=== PATIENT | female | born 1950 | race Caucasian/White ===

== ENCOUNTER → 2018-07-15 10:55 | Outpatient (CLI) | payer MEDICARE, OTHER, SELFPAY ==
--- NOTE | 2018-07-15 | DI.MG.S_ITS ---
BILATERAL DIGITAL SCREENING MAMMOGRAM 3D/2D WITH CAD: 07/15/2018 CLINICAL: Routine screening. Comparison is made to exams dated: 04/27/2017 mammogram, 03/02/2016 mammogram, and 02/14/2015 mammogram - [facility]. The tissue of both breasts is heterogeneously dense. This may lower the sensitivity of mammography. Current study was also evaluated with a Computer Aided Detection (CAD) system. There is architectural distortion in the right breast at 11 o'clock middle depth. There are a grouped calcifications in the left breast middle depth superior region seen on the mediolateral oblique view only. No other significant masses or calcifications are seen in either breast. IMPRESSION: INCOMPLETE: NEEDS ADDITIONAL IMAGING EVALUATION The architectural distortion in the right breast at 11 o'clock middle depth is indeterminate. Additional views with possible ultrasound are recommended. The grouped calcifications in the left breast middle depth superior region seen on the mediolateral oblique view only are indeterminate. Spot magnification views are recommended. This exam was interpreted at Station ID: [id number]. NOTE: For mammograms, a report in lay terms will be sent to the patient. Approximately 15% of breast malignancies will not be visualized mammographically. In the management of a palpable breast mass, a negative mammogram must not discourage biopsy of a clinically suspicious lesion. Electronically Signed By: Avril olsen/siri:07/15/2018 11:45:56 letter sent: Additional Imaging Needed ACR BI-RADS Category 0: Incomplete 3340F
== END ==
PROVIDERS: PCP Family Medicine; Visit Provider Family Medicine
DX: Z12.31 Encounter for screening mammogram for malignant neoplasm of breast (principal)
CPT/HCPCS: 77063; 77067

== ENCOUNTER → 2018-07-29 08:37 | Outpatient (CLI) | payer MEDICARE, OTHER, SELFPAY ==
[2018-07-29 09:31] LABS: Add Manual Diff / Slide Review NO; Basophils Percent Auto 0.8 % (0-2); Eosinophils Percent Auto 1.8 % (2-4); Hematocrit 44.7 % (36-46); Lymphocytes Percent Auto 24.8 % (25-40); Mean Corpuscular HGB Conc 33.7 % (30-36); Mean Corpuscular Hemoglobin 30.2 PG (26-34); Mean Corpuscular Volume 89.7 fL (80-100); Monocytes Percent Auto 6.4 % (3-14); Neutrophils Absolute Auto 4500 /uL (3000-5900); Neutrophils Percent Auto 66.2 % (50-75); Platelet Count 341 X10^3/uL (150-400); Red Blood Cell Count 4.98 X10^6/uL (4.0-5.2); White Blood Cell Count 6.9 X10^3/uL (4.5-11.0)
[2018-07-29 10:09] LABS: Alanine Aminotransferase 33 IU/L (9-52); Albumin 4.8 g/dL (3.5-5.0); Albumin Globulin Ratio 1.7 (1.0-2.8); Alkaline Phosphatase 58 U/L (38-126); Aspartate Aminotransferase 29 IU/L (14-36); Bilirubin Total 0.6 mg/dL (0.2-1.3); Blood Urea Nitrogen 14 mg/dL (7-17); Carbon Dioxide 30 mmol/L (22-32); Chloride 97 mmol/L (98-107); Cholesterol 193 mg/dL (140-199); Estimated Glomerular Filt Rate > 60.0 mL/min (>60); Globulin 2.8 g/dL (1.7-4.1); Glucose 94 mg/dL (80-110); HDL Cholesterol 80 mg/dL (40-60); HEMOLYSIS < 15 (0-50); LDL Cholesterol Calculated 101 mg/dL (<100); Sodium 136 mmol/L (137-145); Total Protein 7.6 g/dL (6.3-8.2); Triglycerides 60 mg/dL (35-150)
[2018-07-29 10:38] LABS: Thyroid Stimulating Hormone 1.11 uIU/mL (0.47-4.68)
== END ==
PROVIDERS: PCP Family Medicine; Visit Provider Family Medicine
DX: E78.2 Mixed hyperlipidemia (principal); I10 Essential (primary) hypertension
CPT/HCPCS: 36415; 80053; 80061; 84443; 85025

== ENCOUNTER → 2018-08-08 07:59 | Outpatient (CLI) | payer MEDICARE, OTHER, SELFPAY ==
--- NOTE | 2018-08-08 08:01 | DI.MG.S_ITS ---
BILATERAL DIGITAL DIAGNOSTIC MAMMOGRAM 3D/2D WITH ADDITIONAL VIEWS: 08/08/2018 CLINICAL: Additional evaluation requested from prior study. Comparison is made to exams dated: 07/15/2018 mammogram, 04/27/2017 mammogram, and 03/02/2016 mammogram - [facility]. The tissue of both breasts is heterogeneously dense. This may lower the sensitivity of mammography. The architectural distortion in the right breast at 11 o'clock middle depth is less prominent than on the screening mammogram. There are grouped calcifications in the left breast middle depth superior region seen on the mediolateral oblique view only. These are unchanged from prior ammograms. No other significant masses or calcifications are seen in either breast. IMPRESSION: INCOMPLETE: NEEDS ADDITIONAL IMAGING EVALUATION The architectural distortion in the right breast at 11 o'clock middle depth is indeterminate. A targeted ultrasound of the right breast is recommended and will be performed immediately following this exam. This exam was interpreted at Station ID: [id number]. NOTE: For mammograms, a report in lay terms will be sent to the patient. Approximately 15% of breast malignancies will not be visualized mammographically. In the management of a palpable breast mass, a negative mammogram must not discourage biopsy of a clinically suspicious lesion. Electronically Signed By: Avril olsen/:08/08/2018 09:06:07 letter sent: Additional Imaging Needed ACR BI-RADS Category 0: Incomplete 3340F
--- NOTE | 2018-08-08 08:01 | DI.US.S_ITS ---
ULTRASOUND OF RIGHT BREAST: 08/08/2018 CLINICAL: Patient returns for additional imaging over a suspected mass in the right breast. Comparison is made to exams dated: 08/08/2018 mammogram, 07/15/2018 mammogram, and 04/27/2017 mammogram - [facility]. Color flow and real-time ultrasound of the right breast were performed on the areas of interest. Carrero scale images of the real-time examination were reviewed. There is an irregular mass in the right breast at 10 o'clock posterior depth. This irregular mass is hypoechoic. This correlates with mammography findings. IMPRESSION: SUSPICIOUS OF MALIGNANCY The irregular mass in the right breast is at an intermediate suspicion for malignancy. An ultrasound guided biopsy is recommended. This exam was interpreted at Station ID: [id number]. SUMMARY: This was discussed with the patient by the radiologist Dr. Trey Nelson at the time of the exam. Electronically Signed By: Avril Stallworth M.D. lk/:08/08/2018 09:43:45 letter sent: Biopsy Required Ultrasound BI-RADS: 4b Suspicious abnormality - intermediate suspicion of malignancy
== END ==
PROVIDERS: PCP Family Medicine; Visit Provider Family Medicine
DX: R92.8 Other abnormal and inconclusive findings on diagnostic imaging of breast (principal); N63.11 Unspecified lump in the right breast, upper outer quadrant
CPT/HCPCS: 76642; 77066; G0279

== ENCOUNTER → 2018-08-25 13:40 | Outpatient (CLI) | payer MEDICARE, OTHER, SELFPAY ==
--- NOTE | 2018-08-25 | DI.US.S_ITS ---
ULTRASOUND GUIDED BIOPSY RIGHT BREAST: 08/25/2018 CLINICAL: Right breast mass. PATIENT CONSENT: Risks (minor bleeding, infection, vasovagal reaction and repeat procedure), benefits and alternatives were explained to the patient and written informed consent was obtained. Correlation is made to exams dated: 08/08/2018 mammogram, 07/15/2018 mammogram, and 04/27/2017 mammogram - [facility]. An ultrasound guided biopsy using real-time ultrasound was attempted for the oval mass located in the right breast at 10 o'clock posterior depth. This was described on the previous ultrasound report. The skin was prepped in the usual manner. The procedure was terminated due to the breast being too hard to penetrate. IMPRESSION: ULTRASOUND GUIDED BIOPSY Ultrasound guided biopsy of the mass in the right breast posterior depth was terminated. This exam was interpreted at Station ID: [id number]. Teresa Salcido M.D. fx/:08/29/2018 09:18:50 Additional referring physicians: MARLENY COLMENARES
== END ==
PROVIDERS: PCP Family Medicine; Visit Provider Family Medicine
DX: N63.12 Unspecified lump in the right breast, upper inner quadrant (principal); Z53.09 Procedure and treatment not carried out because of other contraindication
CPT/HCPCS: 19083; 76642

== ENCOUNTER 2018-09-22 07:29 | Day surgery (SDC) | payer MEDICARE, OTHER, SELFPAY ==
[2018-09-20 11:54] VITALS: BMI 26.2
[2018-09-22] VITALS (9 sets, daily range): BP systolic 122–146; BP diastolic 74–91; PULSE 62–84; RESP 7–16; TEMP 36–36.8; O2SAT 92–98; BMI 26.2
--- NOTE | 2018-09-22 | DI.NM.S_ITS ---
PROCEDURE: NM SENTINEL NODE W IMAGING RADIOPHARMACEUTICAL: 0.5-1.0 mCi Millipore filtered Tc-99m sulfur colloid. INDICATIONS: BREAST CANCER TECHNIQUE: The area around the nipple was prepped and draped in a sterile fashion. Tc-99m sulfur colloid was injected intra-dermally in the outer edge of the areola in the right breast. Images were obtained subsequently. A body contour outline was obtained. FINDINGS: There are 6-7 lymph node(s) in the ipsilateral axilla. A probable intramammary lymph node is noted in the medial aspect of the right breast. IMPRESSION: 6-7 lymph node(s) are identified in the ipsilateral axilla. Administration of radiotracer into the right breast periareolar region for intra-operative sentinel lymph node localization. Dictated by: Teresa Salcido M.D. on 09/22/2018 at 11:12 Approved by: Teresa Salcido M.D. on 09/22/2018 at 11:16
--- NOTE | 2018-09-22 | DI.MG.S_ITS ---
SPECIMEN: 09/22/2018 CLINICAL: Right breast cancer. Correlation is made to exams dated: 09/22/2018 localization - [facility], 08/27/2018 ultrasound biopsy, 08/27/2018 mammogram - [facility], 08/08/2018 mammogram, and 07/15/2018 mammogram - [facility]. The tip of the localizing wire is present. Also visualized within the specimen is the nearby biopsy marker being targeted. IMPRESSION: SPECIMEN The surgical specimen contains the targeted lesion. This exam was interpreted at Station ID: [id number]. Teresa Salcido M.D. fx/penrad:09/23/2018 13:40:49 Entry: - 09/23/2018 13:40:49
--- NOTE | 2018-09-22 07:32 | DI.MG.S_ITS ---
WIRE LOCALIZATION RIGHT BREAST WITH POST MAMMOGRAPHIC IMAGING- POST-NEEDLE BIOPSY: 09/22/2018 CLINICAL: Right breast cancer. Correlation is made to exams dated: 08/27/2018 ultrasound biopsy, 08/27/2018 mammogram - [facility], and 08/08/2018 mammogram - [facility]. A wire localization was performed for the lobulated mass located in the right breast at 10 o'clock middle depth. The skin was prepped in the usual manner. Local anesthetic was administered to the access site. The localization was approached from the lateral aspect. A wire was inserted into the targeted area. Post placement mammographic imaging was obtained. IMPRESSION: WIRE LOCALIZATION Wire localization for the mass in the right breast at 10 o'clock middle depth was successful. Waiting for pathology results. A final report will be issued when these become available. This exam was interpreted at Station ID: [id number]. Teresa Salcido M.D. fx/:09/22/2018 11:24:31
[2018-09-22] MEDS: LACTATED RINGERS 1,000 ML 42 ML IV ×2 (10:00→13:05)
--- NOTE | 2018-09-22 10:09 | SUR.PREOP ---
pt off to radiology at 0810, returned to opd at 0930, no co's , friend at side
--- NOTE | 2018-09-22 12:21 | PM.PREOP ---
Pre-operative Note Interval Note Pre-op Check: Yes History & Physical Reviewed by Physician and Yes Exam Performed Changes: No
[2018-09-22] MEDS: CEFAZOLIN 2 GM/100 ML FROZ.PIGGY IV (12:36)
--- NOTE | 2018-09-22 12:56 | SUR.OPER ---
Supine on padded OR bed, head on pillow, arms secured on padded arm boards at <90 degrees abduction, legs uncrossed, safety belt at thigh, tape over blanket over lower legs.
[2018-09-22] MEDS: BUPIVACAINE 0.5% (PF) VIAL 30 ML INJ (13:18)
[2018-09-22] MEDS: ONDANSETRON 4 MG/2 ML INJ IV (15:06)
[2018-09-22] MEDS: fentaNYL 100 MCG/2 ML INJ 50 MCG IV (15:07)
--- NOTE | 2018-09-22 15:26 | P.OP_ITS ---
Operative Date/Time/Diagnoses Date of procedure: 09/22/18 Time of procedure: 14:45 Pre-op diagnosis: Right-sided breast cancer Post-op diagnosis: same Procedure & Clinicians Procedure: Needle localization and lumpectomy with sentinel node biopsies Same procedure as scheduled: Yes Indications: Breast cancer Surgeon: Roman Lentz Click Yes if Unassisted: Yes Anesthesia Type: General Operative Notes Findings: Multiple hot nodes. At least for in the specimen. Fairly large specimen in the breast. Closure Type: primary Specimen(s): other (Breast tissue and sentinel nodes) Implants & Drains: None Estimated Blood Loss (mL): 50 Blood products transfused: none Procedure in detail: The patient was placed supine on the operating table and underwent general LMA anesthesia. She had had a needle placed in her breast to localize the lesion prior to coming the operating room. The patient also had an injection of radionucleotide to identify the sentinel nodes. She was prepped and draped in the usual fashion. Local anesthetic it was not infiltrated and a curvilinear incision was made through the needle insertion site. Tissue was excised around the needle in soft palpable tissue. The specimen was removed and sent for radiologic examination. It appeared that the lesion was within the specimen. On palpation of the simmons I found some small nodules in the inferior wall and took an additional piece of inferior margin. Only the inferior margin was removed. Hemostasis was achieved. The wound was irrigated. Clips were placed in the cavity. [place] [id number] mobilizing some of the soft tissues. I used the 3 0 Vicryl to close the space and to close the subcu fat. I used a 4 0 Vicryl subcuticular stitch to close the wound. Attention was then turned to the axilla. Local anesthetic was infiltrated and incision made transversely across the axilla below the hair- bearing area. It was carried into the axilla proper. Using the Navigator probe we identified an area of multiple nodes encased in a large amount of fat. I noted that there were multiple hot nodes in the region and chose to remove the fatty mass that is contained them. This was done principally with cautery I ligated 1 vessel. 10 sec counts of 4 nodes identified within the specimens were 7562, 7562, 5269 and 4339. No other significantly positive nodes were identified in the axilla. Once these removed meticulous hemostasis was achieved. The axilla was closed by closing the fascia with 3 0 Vicryl. The subcu was closed with 3 0 Vicryl. Skin was closed running 4 0 Vicryl subcuticular stitch. Steri-Strips were applied to both wounds. Dressings were applied the patient was awakened and taken to recovery area in good condition. Complications: none Condition: stable Disposition: PACU Plan for aftercare: Follow-up in the office next week
--- NOTE | 2018-09-22 15:36 | SUR.PHASEII ---
PT ARRIVED TO PHASE II VIA STRETCHER. PT SITTING UP AND SIPPING WATER. PT FRIEND BROUGHT TO BEDSIDE. IV SITE CLEAR. SURGICAL SITE DRSG OBSERVED TO BE C/D/I. PT STATES PAIN IS TOLERABLE AT THIS TIME. PT DENIES ANY NAUSEA. PT FRIEND WENT TO GET RX FILLED. BED IN LOWEST POSITION AND CALL LIGHT GIVEN TO PT. PT APPEARS COMFORTABLE AT THIS TIME.
== END 2018-09-22 16:41 | disposition home or self-care (01) ==
PROVIDERS: Family Provider Family Medicine; PCP Family Medicine; Visit Provider Specialist
PROC: (CPT 19301; principal; 2018-09-22 11:30)
DX: C50.911 Malignant neoplasm of unspecified site of right female breast (principal)
CPT/HCPCS: 38525; 19301; 19281; 76098; 78195; 88307; 88341; 88342; A9541; J0690; J1100; J1885; J2250; J2405; J2704; J3010

== ENCOUNTER → 2018-10-19 09:59 | Outpatient (CLI) | payer MEDICARE, OTHER, SELFPAY | PROVIDERS: Family Provider Family Medicine; PCP Family Medicine | DX: M85.852 Other specified disorders of bone density and structure, left thigh (principal); Z78.0 Asymptomatic menopausal state; C50.919 Malignant neoplasm of unspecified site of unspecified female breast; Z90.722 Acquired absence of ovaries, bilateral; Z82.62 Family history of osteoporosis | CPT/HCPCS: 77080 ==

== ENCOUNTER → 2019-05-16 12:33 | Outpatient (CLI) | payer MEDICARE, OTHER, SELFPAY ==
--- NOTE | 2019-05-16 | DI.MG.S_ITS ---
BILATERAL DIGITAL DIAGNOSTIC MAMMOGRAM 3D/2D SHORT-TERM FOLLOW-UP POST LUMPECTOMY: 05/16/2019 CLINICAL: Short term follow up of the right breast, due for bilateral imaging. Comparison is made to exams dated: 09/22/2018 [facility], [facility], and 08/08/2018 [facility]. The tissue of both breasts is heterogeneously dense. This may lower the sensitivity of mammography. There are new surgical clips in the right breast at 11 o'clock middle depth. This correlates with surgery. There is architectural distortion, a post-surgical scar, skin retraction, thickening, and trabecular thickening associated with the surgical clips. No other significant masses, calcifications, or other findings are seen in either breast. IMPRESSION: There is no mammographic evidence of malignancy. A 1 year screening mammogram is recommended. This exam was interpreted at Station ID: [id number]. NOTE: For mammograms, a report in lay terms will be sent to the patient. Approximately 15% of breast malignancies will not be visualized mammographically. In the management of a palpable breast mass, a negative mammogram must not discourage biopsy of a clinically suspicious lesion. Electronically Signed By: Antony joseph/siri:05/16/2019 13:29:56 copy to: MARLENY COLMENARES copy to: SOTO GONZALEZ letter sent: Normal Exam ACR BI-RADS Category 2: Benign Finding(s) 3342F
== END ==
PROVIDERS: Family Provider Family Medicine; PCP Family Medicine; Visit Provider Radiology Radiation Oncology
DX: R92.8 Other abnormal and inconclusive findings on diagnostic imaging of breast (principal)
CPT/HCPCS: 77066; G0279

== ENCOUNTER → 2019-08-16 08:40 | Outpatient (CLI) | payer MEDICARE, OTHER, SELFPAY ==
[2019-08-16 09:41] LABS: Add Manual Diff / Slide Review NO; Basophils Absolute Auto 100 /uL (0-100); Basophils Percent Auto 0.8 % (0-2); Eosinophils Absolute Auto 100 /uL (0-450); Eosinophils Percent Auto 1.3 % (2-4); Hematocrit 43.8 % (36-46); Lymphocytes Absolute Auto 1600 /uL (1100-4500); Lymphocytes Percent Auto 18.8 % (25-40); Mean Corpuscular HGB Conc 34.2 % (30-36); Mean Corpuscular Hemoglobin 30.6 PG (26-34); Mean Corpuscular Volume 89.4 fL (80-100); Monocytes Absolute Auto 500 /uL (0-900); Monocytes Percent Auto 5.7 % (3-14); Neutrophils Absolute Auto 6100 /uL (1500-7000); Neutrophils Percent Auto 73.4 % (50-75); Platelet Count 306 X10^3/uL (150-400); White Blood Cell Count 8.3 X10^3/uL (4.5-11.0)
[2019-08-16 09:52] LABS: Alanine Aminotransferase 29 IU/L (9-52); Albumin 4.8 g/dL (3.5-5.0); Albumin Globulin Ratio 1.7 (1.0-2.8); Alkaline Phosphatase 76 U/L (38-126); Aspartate Aminotransferase 33 IU/L (14-36); BUN Creatinine Ratio 17.1 (6-22); Bilirubin Total 0.7 mg/dL (0.2-1.3); Blood Urea Nitrogen 12 mg/dL (7-17); Calcium 10.3 mg/dL (8.4-10.2); Carbon Dioxide 31 mmol/L (22-32); Chloride 97 mmol/L (98-107); Cholesterol 228 mg/dL (140-199); Estimated Glomerular Filt Rate > 60.0 mL/min (>60); Globulin 2.8 g/dL (1.7-4.1); Glucose 101 mg/dL (80-110); HDL Cholesterol 77 mg/dL (40-60); HEMOLYSIS < 15 (0-50); LDL Cholesterol Calculated 127 mg/dL (<100); Sodium 136 mmol/L (137-145); Total Protein 7.6 g/dL (6.3-8.2); Triglycerides 119 mg/dL (35-150)
== END ==
PROVIDERS: PCP Family Medicine; Visit Provider Family Medicine
DX: Z00.00 Encounter for general adult medical examination without abnormal findings (principal); E78.2 Mixed hyperlipidemia; I10 Essential (primary) hypertension
CPT/HCPCS: 36415; 80053; 80061; 85025

== ENCOUNTER → 2020-03-26 09:05 | Outpatient (CLI) | payer MEDICARE, OTHER, SELFPAY ==
[2020-03-26 09:25] LABS: Add Manual Diff / Slide Review NO; Basophils Absolute Auto 100 /uL (0-100); Basophils Percent Auto 1.4 % (0-2); Eosinophils Absolute Auto 100 /uL (0-450); Eosinophils Percent Auto 1.9 % (2-4); Hematocrit 44.3 % (36-46); Hemoglobin 15.1 g/dL (12.0-16.0); Lymphocytes Absolute Auto 1400 /uL (1100-4500); Lymphocytes Percent Auto 29.8 % (25-40); Mean Corpuscular HGB Conc 34.1 % (30-36); Mean Corpuscular Hemoglobin 30.7 PG (26-34); Mean Corpuscular Volume 90.2 fL (80-100); Monocytes Absolute Auto 400 /uL (0-900); Monocytes Percent Auto 7.3 % (3-14); Neutrophils Absolute Auto 2900 /uL (1500-7000); Neutrophils Percent Auto 59.6 % (50-75); Platelet Count 288 X10^3/uL (150-400); Red Blood Cell Count 4.92 X10^6/uL (4.0-5.2); Red Cell Distribution Width 13.9 % (11.6-14.8); White Blood Cell Count 4.8 X10^3/uL (4.5-11.0)
[2020-03-26 09:37] LABS: Alanine Aminotransferase 24 IU/L (<35); Albumin 4.9 g/dL (3.5-5.0); Albumin Globulin Ratio 1.5 (1.0-2.8); Alkaline Phosphatase 71 U/L (38-126); Aspartate Aminotransferase 31 IU/L (14-36); BUN Creatinine Ratio 18.3 (6-22); Bilirubin Total 0.9 mg/dL (0.2-1.3); Blood Urea Nitrogen 13 mg/dL (7-17); Calcium 10.7 mg/dL (8.4-10.2); Carbon Dioxide 27 mmol/L (22-32); Chloride 98 mmol/L (98-107); Cholesterol 201 mg/dL (140-199); Estimated Glomerular Filt Rate > 60.0 mL/min (>60); Globulin 3.2 g/dL (1.7-4.1); Glucose 106 mg/dL (80-110); HDL Cholesterol 71 mg/dL (40-60); HEMOLYSIS 16 (0-50); LDL Cholesterol Calculated 118 mg/dL (<100); Potassium 4.3 mmol/L (3.4-5.1); Sodium 134 mmol/L (137-145); Total Protein 8.1 g/dL (6.3-8.2); Triglycerides 62 mg/dL (35-150)
[2020-03-26 10:00] LABS: Vitamin D 25 Hydroxy (D3) 36.6 ng/mL (30.0-100.0)
== END ==
PROVIDERS: PCP Family Medicine; Referring Provider Internal Medicine Hematology & Oncology; Visit Provider Internal Medicine Hematology & Oncology
DX: C50.919 Malignant neoplasm of unspecified site of unspecified female breast (principal)
CPT/HCPCS: 80053; 80061; 82306; 85025

== ENCOUNTER → 2020-05-21 09:07 | Outpatient (CLI) | payer MEDICARE, OTHER, SELFPAY ==
--- NOTE | 2020-05-21 09:11 | DI.MG.S_ITS ---
BILATERAL DIGITAL SCREENING MAMMOGRAM 3D/2D WITH CAD POST LUMPECTOMY: 05/21/2020 CLINICAL: Routine screening. Personal history of right breast cancer. Comparison is made to exams dated: 05/16/2019 mammogram, 07/15/2018 mammogram, 04/27/2017 mammogram, 03/02/2016 mammogram, and 09/02/2015 mammogram - [facility]. The tissue of both breasts is heterogeneously dense. This may lower the sensitivity of mammography. Current study was also evaluated with a Computer Aided Detection (CAD) system. There are benign calcifications in both breasts. There also are benign post operative findings in the right breast. No significant masses, calcifications, or other findings are seen in either breast. There has been no significant interval change. IMPRESSION: BENIGN There is no mammographic evidence of malignancy. A 1 year screening mammogram is recommended. This exam was interpreted at Station ID: [id number]. NOTE: For mammograms, a report in lay terms will be sent to the patient. Approximately 15% of breast malignancies will not be visualized mammographically. In the management of a palpable breast mass, a negative mammogram must not discourage biopsy of a clinically suspicious lesion. Electronically Signed By: Tom tam/siri:05/21/2020 11:41:07 copy to: MARLENY COLMENARES copy to: HERNESTO VILCHIS letter sent: Normal Exam ACR BI-RADS Category 2: Benign Finding(s) 3342F
--- NOTE | 2020-05-21 09:11 | DI.RAD.S_ITS ---
PROCEDURE: XR HIP W PEL IF DONE LT 2V INDICATIONS: Left hip pain TECHNIQUE: AP pelvis with lateral view(s) of the left hip(s). COMPARISON: None. FINDINGS: Bones: No fractures or dislocations. Pelvic ring appears intact. No suspicious bony lesions. Mild bilateral hip osteoarthritis. Lower lumbar spondylosis Degenerative sclerosis is noted the pubis symphysis. Bilateral sacroiliac degenerative spurring. Soft tissues: The visualized bowel gas pattern is normal. No suspicious soft tissue calcifications. IMPRESSION: Mild bilateral hip joint degeneration If the patient's pain or other symptoms persist, consider further evaluation with MRI Dictated by: Trey Nelson M.D. on 05/21/2020 at 11:23 Approved by: Trey Nelson M.D. on 05/21/2020 at 11:24
--- NOTE | 2020-05-21 09:11 | DI.RAD.S_ITS ---
PROCEDURE: XR LUMBAR SPINE 2-3V INDICATIONS: Left hip pain TECHNIQUE: 3 views of the lumbar spine were acquired. COMPARISON: None. FINDINGS: Bones: No fracture or focal osseous destruction. Multilevel degenerative endplate sclerosis and spurring. Diffuse facet arthropathy. Grade 1 anterolisthesis of L4 on L5. Severe narrowing of the L3-L4 and L5-S1 disc spaces. Soft tissues: Overlying bowel gas pattern is normal. No suspicious soft tissue calcifications. IMPRESSION: Multilevel lumbar spondylosis most pronounced at L3-L4 and L5-S1 Dictated by: Trey Nelson M.D. on 05/21/2020 at 11:24 Approved by: Trey Nelson M.D. on 05/21/2020 at 11:25
[2020-05-21 11:20] LABS: BUN Creatinine Ratio 12.5 (6-22); Blood Urea Nitrogen 8 mg/dL (7-17); Calcium 10.1 mg/dL (8.4-10.2); Carbon Dioxide 27 mmol/L (22-32); Chloride 98 mmol/L (98-107); Estimated Glomerular Filt Rate > 60.0 mL/min (>60); Glucose 93 mg/dL (80-110); HEMOLYSIS < 15 (0-50); Potassium 4.6 mmol/L (3.4-5.1); Sodium 132 mmol/L (137-145)
== END ==
PROVIDERS: PCP Family Medicine; Referring Provider Family Medicine; Visit Provider Internal Medicine Hematology & Oncology
DX: Z12.31 Encounter for screening mammogram for malignant neoplasm of breast (principal); Z85.3 Personal history of malignant neoplasm of breast; M25.552 Pain in left hip; M16.0 Bilateral primary osteoarthritis of hip; M47.816 Spondylosis without myelopathy or radiculopathy, lumbar region; M47.817 Spondylosis without myelopathy or radiculopathy, lumbosacral region; E83.52 Hypercalcemia
CPT/HCPCS: 36415; 72100; 73502; 77063; 77067; 80048

== ENCOUNTER → 2020-09-17 09:10 | Outpatient (CLI) | payer MEDICARE, OTHER, SELFPAY ==
[2020-09-17 10:44] LABS: BUN Creatinine Ratio 16.7 (6-22); Blood Urea Nitrogen 11 mg/dL (7-17); Calcium 10.1 mg/dL (8.4-10.2); Carbon Dioxide 30 mmol/L (22-32); Chloride 100 mmol/L (98-107); Cholesterol 213 mg/dL (140-199); Estimated Glomerular Filt Rate > 60.0 mL/min (>60); Glucose 98 mg/dL (80-110); HDL Cholesterol 80 mg/dL (40-60); HEMOLYSIS 19 (0-50); LDL Cholesterol Calculated 108 mg/dL (<100); Potassium 4.5 mmol/L (3.4-5.1); Sodium 135 mmol/L (137-145); Triglycerides 124 mg/dL (35-150)
== END ==
PROVIDERS: PCP Family Medicine; Referring Provider Family Medicine; Visit Provider Family Medicine
DX: E78.2 Mixed hyperlipidemia (principal); I10 Essential (primary) hypertension
CPT/HCPCS: 36415; 80048; 80061

== ENCOUNTER 2020-09-20 14:56 | Emergency (ER) | payer MEDICARE, OTHER, SELFPAY ==
[2020-09-20] VITALS (10 sets, daily range): BP systolic 130–182; BP diastolic 75–95; PULSE 74–90; RESP 17–29; TEMP 37.1; O2SAT 97–99
--- NOTE | 2020-09-20 15:11 | DI.RAD.S_ITS ---
PROCEDURE: XR CHEST 1V INDICATIONS: chest pain TECHNIQUE: One view of the chest was acquired. COMPARISON: None. FINDINGS: Surgical changes and devices: None. Lungs and pleura: Lungs are clear. No pleural effusions or pneumothorax. Mediastinum: Mediastinal contours appear normal. Heart size is normal. Bones and chest wall: No suspicious bony lesions. Overlying soft tissues appear unremarkable. IMPRESSION: Normal for age, source of current chest pain symptoms is not seen. Dictated by: Sridhar Lutz M.D. on 09/20/2020 at 15:43 Approved by: Sridhar Lutz M.D. on 09/20/2020 at 15:43
--- NOTE | 2020-09-20 15:15 | PC.NURSE ---
Patient bought a pulse oximetry device and used it finding her hear rate in 140's. Patient states during times of fast heart rate some lightheadedness as well as some intermittent left sided chest pulling Denies nausea, SOB. Has had some headaches recently
[2020-09-20 15:18] LABS: INR 1.1 (0.9-1.3); Prothrombin Time 12.1 SECONDS (10.1-12.7)
[2020-09-20 15:21] LABS: Add Manual Diff / Slide Review NO; Basophils Absolute Auto 100 /uL (0-100); Basophils Percent Auto 0.9 % (0-2); Eosinophils Absolute Auto 0 /uL (0-450); Eosinophils Percent Auto 0.5 % (2-4); Hematocrit 44.8 % (36-46); Hemoglobin 15.1 g/dL (12.0-16.0); Lymphocytes Absolute Auto 1700 /uL (1100-4500); Lymphocytes Percent Auto 26.5 % (25-40); Mean Corpuscular HGB Conc 33.8 % (30-36); Mean Corpuscular Hemoglobin 30.5 PG (26-34); Mean Corpuscular Volume 90.4 fL (80-100); Monocytes Absolute Auto 500 /uL (0-900); Monocytes Percent Auto 7.5 % (3-14); Neutrophils Absolute Auto 4200 /uL (1500-7000); Neutrophils Percent Auto 64.6 % (50-75); PTT Partial Thromboplastin Tim 30 SECONDS (26.4-36.2); Platelet Count 283 X10^3/uL (150-400); Red Blood Cell Count 4.95 X10^6/uL (4.0-5.2); Red Cell Distribution Width 14.5 % (11.6-14.8); White Blood Cell Count 6.5 X10^3/uL (4.5-11.0)
[2020-09-20 15:23] LABS: Alanine Aminotransferase 23 IU/L (<35); Albumin 4.8 g/dL (3.5-5.0); Albumin Globulin Ratio 1.6 (1.0-2.8); Alkaline Phosphatase 72 U/L (38-126); Aspartate Aminotransferase 27 IU/L (14-36); BUN Creatinine Ratio 17.9 (6-22); Bilirubin Total 0.7 mg/dL (0.2-1.3); Blood Urea Nitrogen 12 mg/dL (7-17); Carbon Dioxide 29 mmol/L (22-32); Chloride 100 mmol/L (98-107); Creatine Kinase 67 U/L (30-135); Estimated Glomerular Filt Rate > 60.0 mL/min (>60); Glucose 97 mg/dL (80-110); HEMOLYSIS 18 (0-50); Lipase 61 U/L (23-300); Potassium 3.8 mmol/L (3.4-5.1); Sodium 136 mmol/L (137-145); Total Protein 7.8 g/dL (6.3-8.2)
--- NOTE | 2020-09-20 15:30 | ED_ITS ---
HPI - Arrhythmia/Palpitations General Chief Complaint: Arrhythmia/Palpitations Stated Complaint: heart issues high pulse left side pain Time Seen by Provider: 09/20/20 15:08 Source: patient Mode of arrival: Family Vehicle Limitations: no limitations History of Present Illness HPI narrative: 69-year-old woman with a history of right-sided breast cancer post lumpectomy, radiation and currently on letrozole. History of hyperlipidemia and hypertension presents with 48 hours of up pulling sensation in her left chest. She notes that her resting heart rate(she recently purchased a pulse ox monitor) has been in the 110 range and with some simple activity got as high as 140. She notes this is significantly abnormal for herself. She says she has been slightly lightheaded over the last 48 hours but not particularly dizzy. Over the last few months she is concerned that she may have been having some heaviness in her left chest she has been ignoring. She does not describe any recent fevers or cough. She has been more fatigued than usual. When she has this slight pulling in her chest and notes that her heart rate is somewhat elevated she does not feel dyspneic, nauseated nor diaphoretic. She has had no abdominal pain or diarrhea. No urinary frequency or urgency. Related Data Home Medications Medication Instructions Recorded Confirmed calcium carbonate [Tums E-X] 750 mg PO PRN PRN #0 12/28/17 06/05/20 valacyclovir 500 mg PO PRN PRN 02/08/19 06/05/20 Previous Rx's Medication Instructions Recorded atorvastatin 40 mg tablet 40 mg PO HS #90 tab 08/24/19 letrozole [Femara] 2.5 mg PO DAILY #90 tab 02/13/20 ciprofloxacin HCl 500 mg tablet 500 mg PO BID PRN #20 tab 04/17/20 triamcinolone acetonide 0.1 % 1 applictn TOP BID #28.4 gram 04/17/20 topical cream exemestane 25 mg PO DAILY #90 tab 06/05/20 lisinopril 10 mg tablet 10 mg PO QDAY #90 tab 09/04/20 Allergies Allergy/AdvReac Type Severity Reaction Status Date / Time amoxicillin [AMOXICILLIN] AdvReac Mild VOMITING Verified 09/20/20 15:17 codeine [CODEINE] AdvReac Mild GI Verified 09/20/20 15:17 INTOLERANCE erythromycin base AdvReac Mild GI Verified 09/20/20 15:17 [ERYTHROMYCIN BASE] INTOLERANCE Review of Systems Review of Systems Narrative: Remainder of review of systems including constitutional, ENT, cardiovascular, respiratory, GI, , musculoskeletal, skin, neurologic and p sychiatric systems reviewed and are unremarkable except as noted in HPI. Patient History Medical History Breast cancer Cataracts, bilateral (~2009) Chicken pox Diverticular disease (~2014) GERD (gastroesophageal reflux disease) Herpes Hyperlipidemia Hypertension (~2014) Measles (~1979) Migraines Mumps Ovarian cyst (~2006) Ruptured tympanic membrane (~2008) Vision disorder Whooping cough (~1955) Surgical History Anesthesia S/P total abdominal hysterectomy and bilateral salpingo-oophorectomy (~2006) Status post biopsy (~1994) Status post cataract extraction of both eyes with insertion of intraocular lens (~2017) Family History Father Hypertension Grandfather Heart disease Grandfather Heart disease Brother No problems noted. Brother No problems noted. Family/Other Stomach cancer Grandmother No problems noted. Mother No problems noted. Social History household members: none occupational status: previously employed Smoking Status: Never smoker alcohol intake: current Smoking Status: Never smoker alcohol intake frequency: 0-2 drinks per day Alcohol type: wine Substance Use Type: does not use Exam Narrative Exam Narrative: General: Healthy appearing, in no acute distress. Able to give a complete and coherent history. Well-nourished well-developed HEENT: Moist mucous membranes, normal sclera with reactive pupils, Neck: No JVD, supple Respiratory: Lungs are clear to auscultation, no wheezing no rales no rhonchi. Full and symmetrical air movement Chest: No tenderness to palpation along the sternal borders or with anterior compression of the chest. Cardiac: Regular rate and rhythm no murmurs no bruits Abdomen: Soft nontender good bowel tones, no flank pain Skin: Warm and dry, no rashes Neurologic: Grossly neurologically intact with no obvious asymmetries or abnormalities Extremities: No trauma, well perfused Psych: Cooperative, appropriate insight and affect Initial Vital Signs Initial Vital Signs: Vital Signs Temperature 98.7 F 09/20/20 15:11 Pulse Rate 87 09/20/20 15:11 Respiratory Rate 19 09/20/20 15:11 Blood Pressure 182/92 H 09/20/20 15:11 Pulse Oximetry 99 09/20/20 15:11 Course Orders Ordered: ED Orders 09/20/20 15:05 Complete Blood Count AUTO DIFF Stat Comprehensive Metabolic Panel Stat D Dimer Stat Lipase Stat Partial Thromboplastin Time Stat Prothrombin Time INR Stat Troponin & CK Cardiac Panel Stat 09/20/20 15:11 XR chest 1V Stat EKG-12 Lead Stat Vital Signs Vital signs: Vital Signs - 8 hr 09/20/20 15:11 09/20/20 15:20 09/20/20 15:30 Temperature 98.7 F Pulse Rate 87 81 83 Respiratory Rate 19 20 Blood Pressure 182/92 H Pulse Oximetry 99 98 97 09/20/20 16:00 09/20/20 16:30 09/20/20 17:00 Temperature Pulse Rate 80 74 75 Respiratory Rate 19 17 19 Blood Pressure Pulse Oximetry 97 98 98 09/20/20 17:30 Temperature Pulse Rate 83 Respiratory Rate 28 H Blood Pressure 130/75 Pulse Oximetry 98 MDM - Arrhythmia/Palpitations Medical Records Attestation: I reviewed the patient's medical records. Lab Data Attestation: I reviewed the patient's lab results. Result diagrams: 09/20/20 15:05 09/20/20 15:05 Labs: Lab Results 09/20/20 09/20/20 09/20/20 Range/Units 15:05 15:05 15:05 WBC 6.5 (4.5-11.0) X10^3/uL RBC 4.95 (4.0-5.2) X10^6/uL Hgb 15.1 (12.0-16.0) g/dL Hct 44.8 (36-46) % MCV 90.4 (80-100) fL MCH 30.5 (26-34) PG MCHC 33.8 (30-36) % RDW 14.5 (11.6-14.8) % Plt Count 283 (150-400) X10^3/uL Neut % (Auto) 64.6 (50-75) % Lymph % (Auto) 26.5 (25-40) % [place] % (Auto) 7.5 (3-14) % Eos % (Auto) 0.5 L (2-4) % Baso % (Auto) 0.9 (0-2) % Neut # (Auto) 4200 (2506-9753) /uL Lymph # (Auto) 1700 (6717-1350) /uL [place] # (Auto) 500 (0-900) /uL Eos # (Auto) 0 (0-450) /uL Baso # (Auto) 100 (0-100) /uL PT 12.1 (10.1-12.7) SECONDS INR 1.1 (0.9-1.3) APTT 30 (26.4-36.2) SECONDS D-Dimer (<230) ng/mL Sodium 136 L (137-145) mmol/L Potassium 3.8 (3.4-5.1) mmol/L Chloride 100 (98-107) mmol/L Carbon Dioxide 29 (22-32) mmol/L BUN 12 (7-17) mg/dL Creatinine 0.67 (0.52-1.04) mg/dL Estimated GFR > 60.0 (>60) mL/min BUN/Creatinine Ratio 17.9 (6-22) Glucose 97 (80-110) mg/dL Calcium 10.0 (8.4-10.2) mg/dL Total Bilirubin 0.7 (0.2-1.3) mg/dL AST 27 (14-36) IU/L ALT 23 (<35) IU/L Alkaline Phosphatase 72 (38-126) U/L Total Creatine Kinase 67 (30-135) U/L CK-MB (CK-2) TNP CK-MB (CK-2) Rel Index TNP Troponin I < 0.012 (0.01-0.034) ng/mL Total Protein 7.8 (6.3-8.2) g/dL Albumin 4.8 (3.5-5.0) g/dL Globulin 3.0 (1.7-4.1) g/dL Albumin/Globulin Ratio 1.6 (1.0-2.8) Lipase 61 (23-300) U/L 09/20/20 Range/Units 15:05 WBC (4.5-11.0) X10^3/uL RBC (4.0-5.2) X10^6/uL Hgb (12.0-16.0) g/dL Hct (36-46) % MCV (80-100) fL MCH (26-34) PG MCHC (30-36) % RDW (11.6-14.8) % Plt Count (150-400) X10^3/uL Neut % (Auto) (50-75) % Lymph % (Auto) (25-40) % [place] % (Auto) (3-14) % Eos % (Auto) (2-4) % Baso % (Auto) (0-2) % Neut # (Auto) (5675-1374) /uL Lymph # (Auto) (9644-2356) /uL [place] # (Auto) (0-900) /uL Eos # (Auto) (0-450) /uL Baso # (Auto) (0-100) /uL PT (10.1-12.7) SECONDS INR (0.9-1.3) APTT (26.4-36.2) SECONDS D-Dimer 201 (<230) ng/mL Sodium (137-145) mmol/L Potassium (3.4-5.1) mmol/L Chloride (98-107) mmol/L Carbon Dioxide (22-32) mmol/L BUN (7-17) mg/dL Creatinine (0.52-1.04) mg/dL Estimated GFR (>60) mL/min BUN/Creatinine Ratio (6-22) Glucose (80-110) mg/dL Calcium (8.4-10.2) mg/dL Total Bilirubin (0.2-1.3) mg/dL AST (14-36) IU/L ALT (<35) IU/L Alkaline Phosphatase (38-126) U/L Total Creatine Kinase (30-135) U/L CK-MB (CK-2) CK-MB (CK-2) Rel Index Troponin I (0.01-0.034) ng/mL Total Protein (6.3-8.2) g/dL Albumin (3.5-5.0) g/dL Globulin (1.7-4.1) g/dL Albumin/Globulin Ratio (1.0-2.8) Lipase (23-300) U/L Imaging Data Chest x-ray: Radiologist's Impresson: FINDINGS: Surgical changes and devices: None. Lungs and pleura: Lungs are clear. No pleural effusions or pneumothorax. Mediastinum: Mediastinal contours appear normal. Heart size is normal. Bones and chest wall: No suspicious bony lesions. Overlying soft tissues appear unremarkable. IMPRESSION: Normal for age, source of current chest pain symptoms is not seen. Dictated by: Sridhar Lutz M.D. on 09/20/2020 at 15:43 ECG Data Attestation: I personally reviewed and interpreted this ECG as follows: Interpretation: Sinus rhythm at a rate of 184 Occasional PVC Normal axis , normal interval no acute ST T wave changes, no acute ischemic changes MDM Narrative Medical decision making narrative: 69-year-old woman with notable increase in resting heart rate. History of breast cancer and mild left-sided chest pressure/discomfort. Workup is unremarkable for life-threatening issues such as pulmonary embolism, severe anemia, infection including pneumonia, no pneumothorax, no cardio myopathy or cardiomegaly. No obvious explanation to explain the elevated baseline heart rate is noted today. We did briefly discuss overall anxiety levels and I reassured her that continuing her usual activities including taking long walks is safe and may well help in the long run with all of her symptoms. No life-threatening explanation for the elevated resting heart rate or slight chest pain is appreciated. She is safe for home discharge Discharge Plan Departure Patient Disposition: Home Clinical Impression: Sinus tachycardia, Chest pain, non-cardiac Instructions: DI for Atypical Chest Pain Activity Restrictions/Additional Instructions: Thank you for coming in today I think that a more thorough investigation into your relatively elevated resting heart rate as well as some of the pressure that you had over the left side of your chest is absolutely appropriate. Fortunately, I am able to tell you that I did not find any life-threatening issues today. Specifically I did not find any evidence for pulmonary embolism, severe anemia, infection of any kind or heart attack or heart attack like syndrome. It is safe to continue with your activities of daily living including your usual exercise. Focusing again on some of your meditation practices and techniques to make sure that you are grounded and not responding so immediately to the existential angst that seems to be a part of our [place] these last few months may well be helpful. If you have new or worsening symptoms, please feel free to return to the emerge ncy room for further evaluation. I wish you the best Prescriptions: No Action calcium carbonate [Tums E-X] 750 MG tablet,chewable 750 mg PO PRN PRN (Reason: Acid Reflux) Qty: 0 RF: 0 lisinopril [Zestril] 10 mg tablet 10 mg PO QDAY Qty: 90 RF: 0 ciprofloxacin HCl 500 mg tablet 500 mg PO BID PRN (Reason: Diverticulitis) Qty: 20 RF: 0 triamcinolone acetonide 0.1 % cream 1 applictn TOP BID Qty: 28.4 RF: 5 atorvastatin [Lipitor] 40 mg tablet 40 mg PO HS Qty: 90 RF: 3 valacyclovir 500 MG tablet 500 mg PO PRN PRN (Reason: Outbreak) RF: 0 letrozole [Femara] 2.5 mg Tablet 2.5 mg PO DAILY Qty: 90 RF: 4 exemestane 25 mg Tablet 25 mg PO DAILY Qty: 90 RF: 3 Referrals: Juan Manuel Wallace MD [Primary Care Provider] -
[2020-09-20 15:35] LABS: Troponin I < 0.012 ng/mL (0.01-0.034)
[2020-09-20 15:44] LABS: D Dimer 201 ng/mL (<230)
== END 2020-09-20 18:12 | disposition home or self-care (01) ==
PROVIDERS: Emergency Provider Emergency Medicine; PCP Family Medicine
DX: R00.0 Tachycardia, unspecified (principal); R07.89 Other chest pain; E78.5 Hyperlipidemia, unspecified; I10 Essential (primary) hypertension; C50.919 Malignant neoplasm of unspecified site of unspecified female breast
CPT/HCPCS: 36415; 71045; 80053; 82550; 83690; 84484; 85025; 85379; 85610; 85730; 93005; 99283; 99284

== ENCOUNTER → 2020-10-23 09:45 | Outpatient (CLI) | payer MEDICARE, OTHER, SELFPAY ==
--- NOTE | 2020-10-23 09:46 | DI.NM.S_ITS ---
PROCEDURE: NM BERTIN PERF SPECT REST & STR Rest and exercise myocardial perfusion SPECT with gated imaging and ejection fraction RADIOPHARMACEUTICAL: 26.50 mCi Tc-99m sestamibi IV at rest and 26.5 mCi Tc-99m sestamibi IV at peak exercise. A two day-protocol was performed. INDICATIONS: arrhythmia TECHNIQUE: Radiopharmaceutical was injected at peak stress test, and also at rest. SPECT images were obtained. SPECT myocardial perfusion images were displayed in short axis, horizontal long axis, and vertical long axis views. Gated images were reviewed using [employer] software. COMPARISON: None. CARDIAC STRESS: A standard Don treadmill exercise tolerance test was performed by the patient under the supervision of an attending staff. The patient exercised for 3 minutes and 29 seconds; functional aerobic impairment (MARILYN) is +15% on sedentary scale. Hemodynamic data: There is normal blood pressure and heart rate response to exercise stress. Patient achieved 116% of maximum predicted heart rate at peak exercise. Symptoms: Patient denied chest pain during exercise. EKG: No diagnostic EKG changes of ischemia; frequent PVCs at rest that essentially resolved with exercise and came back in recovery. FINDINGS: Raw data: There is good myocardial labeling by radiotracer. No significant motion artifacts. Mvpe-rt-yorzf ratio is 0.21 (normal is less than 0.38 for sestamibi tracer, and less than 0.50 for thallium tracer). Left ventricle function: Gated images demonstrate normal left ventricle wall thickening. No segmental wall motion abnormality. No transient ischemic dilation; TID is 0.88 (normal less than 1.3). The left ventricle resting end-diastolic volume is 72 mL. Left ventricle stress ejection fraction is 87%; normal values are above 45%. Myocardial perfusion: There is normal distribution of activity in the left and right ventricular myocardium. No fixed or reversible perfusion defects. IMPRESSION: Low risk, normal treadmill nuclear stress test. 1) No perfusion evidence of ischemia or infarction. 2) Normal left ventricular size, wall motion, and systolic function (EF post stress 87%). 3) No ECG evidence of ischemia. Frequent PVCs at rest that essentially resolved with exercise and came back in recovery. 4) No angina during the study. 5) Reduced exercise tolerance (4.6 METs, FAOI +15% on sedentary scale). Target heart rate achieved. Appropriate BP response to exercise. Dictated by: Valorie Krishna MD on 10/24/2020 at 18:02 Approved by: Valorie Krishna MD on 10/24/2020 at 18:06
== END ==
PROVIDERS: PCP Family Medicine; Referring Provider Family Medicine; Visit Provider Family Medicine
DX: Z01.812 Encounter for preprocedural laboratory examination (principal); I49.9 Cardiac arrhythmia, unspecified; R07.89 Other chest pain; Z20.822 Contact with and (suspected) exposure to COVID-19
CPT/HCPCS: 78452; 87635; 93016; 93017; 93018; C9803; A9502

== ENCOUNTER → 2020-10-23 13:38 | Outpatient (CLI) | payer MEDICARE, OTHER, SELFPAY ==
[2020-10-23 15:08] LABS: COVID19 -Nasal RAPID Negative (Negative)
== END ==
PROVIDERS: PCP Family Medicine; Visit Provider Physician Assistant
DX: Z01.812 Encounter for preprocedural laboratory examination (principal); Z20.822 Contact with and (suspected) exposure to COVID-19
CPT/HCPCS: 87635

== ENCOUNTER → 2020-10-24 13:08 | Outpatient (CLI) | payer MEDICARE, OTHER, SELFPAY ==
--- NOTE | 2020-10-24 13:09 | DI.ECHO.S_ITS ---
Version: 1 Study ID: [id number] [place] [address] Name: MARYANNE SHINE Study Date: 10/24/2020, 2: 59 PM : 1950 BP: 133 / 100 mmHg Gender: Female Height: 63 in Age: 69 Years Weight: 149 lb BSA: 1.71 mA? Ordering: MARLENY COLMENARES Referring: MARLENY COLMENARES Clinician: Abby Navarrete Reason For Study: AARHYTHMIA History: Summary Statements Normal sinus rhythm. Normal LV size, wall thickness, wall motion and LV systolic function. EF is 60-65%. Normal chamber sizes. Aortic sclerosis with mild associated aortic regurgitation. Otherwise no significant valvular abnormalities. No prior study available for comparison. Procedure: A two-dimensional transthoracic echocardiogram with color flow and Doppler was performed. The study quality was technically adequate. The patient had an echocardiogram, but there is no comparison study available. The patient was in sinus rhythm with heart rates between 75-85 bpm during the exam. Left Ventricle: Diastolic parameters suggest a relaxation abnormality of the left ventricle, consistent with probable normal filling pressures. The ejection fraction is estimated to be 60-65%. The left ventricle is normal in size and wall thickness. Right Ventricle: The right ventricle is normal in size and function. Atria: There is no Doppler evidence for an interatrial shunt. The left atrial size is normal. Right atrial size is normal. Mitral Valve: There is mild mitral regurgitation. The mitral valve is normal in structure and function. Aortic Valve: There is mild aortic regurgitation. There is no aortic valve stenosis. The aortic valve is moderately calcified. There is mild to moderately reduced leaflet mobility. There is discrete nodular thickening of the non- coronary cusp. Tricuspid Valve: There is trace tricuspid regurgitation. Pulmonary artery pressures cannot be estimated because of the lack of a measurable TR jet velocity but the IVC suggests a CVP of around 19 mmHg. The tricuspid valve is normal in structure and function. Pulmonic Valve: There is no pulmonic valvular regurgitation. The pulmonic valve leaflets are thin and pliable; valve motion is normal. Great Vessels: The ascending aorta is mildly enlarged. The aortic root is normal size. The IVC is of normal diameter and collapses greater than 50% with a sniff. This suggests a low right atrial pressure of 3 mm Hg. Pericardium/ Pleura: There is no pericardial effusion. There is no pleural effusion. 2D and M-Mode Measurements and Calculations LVIDd: 4.1 cm AoV Openin.44 cm LVIDs: 2.8 cm LVOT diam: 2.08 cm IVSd: 0.66 cm Ao root diam: 3.0 cm LVPWd: 0.87 cm asc Aorta Diam: 3.4 cm LV gill. diameter/BSA (cm/m^2): 2.42 Ao Arch Diam (Prox Trans): 2.6 cm LV sys. diameter/BSA (cm/m^2): 1.64 EPSS: 0.84 cm RVD1 (basal): 3.1 cm IVC diam: 1.29 cm TAPSE: 1.84 cm LA A4 area: 14.7 special assemblies supervisor? RA area: 14.5 special assemblies supervisor? LA A2 area: 15.7 special assemblies supervisor? RA long axis: 4.5 cm LA length (vol): 4.9 cm RA vol: 39.8 ml LA vol: 39.6 ml RA : 23.3 ml/mA? LA vol index: 23.2 ml/mA? Doppler Measurements and Calculations Ao V2 max: 182.4 cm/sec LVOT Max Andrew: 93.2 cm/sec Ao V2 mean: 117.6 cm/sec LV V1 max P.5 mmHg Ao V2 VTI: 34.0 cm LV V1 VTI: 18.6 cm Ao max P.3 mmHg Ao mean P.6 mmHg SARAI(I,D): 1.86 special assemblies supervisor? SARAI(V,D): 1.74 special assemblies supervisor? SARAI indexed to BSA (cm^2/m^2): 1.09 sev ratio: 0.55 MV E max andrew: 44.1 cm/sec MV dec time: 0.27 sec MV A max andrew: 92.1 cm/sec MV E/A: 0.48 Med Peak E' Andrew: 4.5 cm/sec Lat Peak E' Andrew: 5.6 cm/sec E/e' average: 8.8 TR max andrew: 201.4 cm/sec PA V2 max: 47.4 cm/sec TR max P.2 mmHg PA mean P.46 mmHg Debbie Ruiz M.D. Electronically signed by: Debbie Ruiz M.D. 10/25/2020, 1: 24 AM
--- NOTE | 2020-10-24 14:31 | PM.TREADMILL ---
Cardiac Stress Test Report Referral & Results Date Patient Seen: 10/24/20 Requesting provider: Juan Manuel Wallace Indication: Tachycardia Rest ECG: Frequent PVCs including couplets Procedure Note: Today following both written and verbal informed consent the patient was exercised according to a standard Don protocol patient went for a total of 3 minutes 29 seconds at stage I achieving a maximum heart rate of 174 maximum systolic blood pressure of 160. This is approximately 4.6 METS. Exercise was terminated at this point because of patient was unable to keep up with treadmill or go any faster. Patient was also given Cardiolite through a previously started Hep-Lock IV by the diagnostic imaging staff approximately 1 minute prior to the cessation of exercise. Patient with frequent PVCs at rest but as heart rate increased these disappeared. These were asymptomatic. Function aerobic impairment rates about 15% on the sedentary scale Oxygen saturation remained normal No ST-T segment changes to suggest ischemia Impression: No ECG evidence of ischemia somewhat limited exercise capacity but more likely due to inability to coordinate with the treadmill Please see perfusion imaging report as well Frequent PVCs, recommend echocardiogram Please note: Actual ECG tracings can be found in the PACS system.
== END ==
PROVIDERS: PCP Family Medicine; Referring Provider Family Medicine; Visit Provider Family Medicine
DX: I08.0 Rheumatic disorders of both mitral and aortic valves (principal); I77.89 Other specified disorders of arteries and arterioles; R00.0 Tachycardia, unspecified
CPT/HCPCS: 93306

== ENCOUNTER → 2021-05-22 10:02 | Outpatient (CLI) | payer MEDICARE, OTHER, SELFPAY | PROVIDERS: PCP Family Medicine; Referring Provider Internal Medicine; Visit Provider Internal Medicine | DX: M85.852 Other specified disorders of bone density and structure, left thigh (principal); Z78.0 Asymptomatic menopausal state; Z85.3 Personal history of malignant neoplasm of breast; Z79.811 Long term (current) use of aromatase inhibitors; Z90.722 Acquired absence of ovaries, bilateral; Z82.62 Family history of osteoporosis | CPT/HCPCS: 77080 ==

== ENCOUNTER → 2021-09-02 10:10 | Outpatient (CLI) | payer MEDICARE, OTHER, SELFPAY ==
[2021-09-02 11:22] LABS: Add Manual Diff / Slide Review NO; Basophils Absolute Auto 100 /uL (0-100); Basophils Percent Auto 1.3 % (0-2); Eosinophils Absolute Auto 100 /uL (0-450); Eosinophils Percent Auto 1.2 % (2-4); Hematocrit 44.1 % (36-46); Hemoglobin 14.9 g/dL (12.0-16.0); Lymphocytes Absolute Auto 1400 /uL (1100-4500); Lymphocytes Percent Auto 31.4 % (25-40); Mean Corpuscular HGB Conc 33.7 % (30-36); Mean Corpuscular Hemoglobin 30.1 PG (26-34); Mean Corpuscular Volume 89.5 fL (80-100); Monocytes Absolute Auto 300 /uL (0-900); Neutrophils Absolute Auto 2600 /uL (1500-7000); Neutrophils Percent Auto 59.1 % (50-75); Platelet Count 299 X10^3/uL (150-400); Red Blood Cell Count 4.93 X10^6/uL (4.0-5.2); White Blood Cell Count 4.4 X10^3/uL (4.5-11.0)
[2021-09-02 11:29] LABS: Alanine Aminotransferase 21 IU/L (<35); Albumin 4.7 g/dL (3.5-5.0); Alkaline Phosphatase 72 U/L (38-126); Aspartate Aminotransferase 28 IU/L (14-36); Bilirubin Total 0.8 mg/dL (0.2-1.3); Blood Urea Nitrogen 12 mg/dL (7-17); Calcium 10.3 mg/dL (8.4-10.2); Carbon Dioxide 26 mmol/L (22-32); Chloride 100 mmol/L (98-107); Cholesterol 198 mg/dL (140-199); Estimated Glomerular Filt Rate > 60.0 mL/min (>60); Globulin 2.4 g/dL (1.7-4.1); Glucose 100 mg/dL (80-110); HDL Cholesterol 82 mg/dL (40-60); HEMOLYSIS < 15 (0-50); LDL Cholesterol Calculated 98 mg/dL (<100); Potassium 4.5 mmol/L (3.4-5.1); Sodium 134 mmol/L (137-145); Total Protein 7.1 g/dL (6.3-8.2); Triglycerides 88 mg/dL (35-150)
== END ==
PROVIDERS: PCP Family Medicine; Referring Provider Family Medicine; Visit Provider Family Medicine
DX: E78.2 Mixed hyperlipidemia (principal); I10 Essential (primary) hypertension; E83.52 Hypercalcemia
CPT/HCPCS: 36415; 80053; 80061; 85025

== ENCOUNTER → 2021-09-12 11:04 | Outpatient (CLI) | payer MEDICARE, OTHER, SELFPAY ==
--- NOTE | 2021-09-12 11:09 | DI.MRI.S_ITS ---
PROCEDURE: MR HIP LT WO CON INDICATIONS: pain still after PT, osteopathic tx, and chiropractic tx TECHNIQUE: Noncontrast coronal T1 spin echo and STIR through the bony pelvis. Coronal and axial T2 fast spin echo with fat saturation, sagittal T1 spin echo, and oblique axial T2 fast spin echo with fat saturation through the hip. COMPARISON: None. FINDINGS: BONES AND JOINTS: Osseous structures: No fracture identified. Sacroiliac joints: Unremarkable in signal intensity. Lower lumbar spine: Diffuse spondylosis and facet arthropathy. Other: No evidence of osteonecrosis. TENDONS AND LIGAMENTS: Gluteus medius and minimus tendons: Severe partial tear/tendinopathy of the gluteus minimus tendon. There is also high-grade signal changes, thickening and strain/partial tear involving the gluteus medius tendon. There is adjacent soft tissue edema and fluid. Atrophy of the respective muscles is also noted, compared to the right side. There is also tendinopathy involving the right hip adductors, although to a much lesser extent, seen on large [id number] pulse sequences. There is age-indeterminate sprain of the origin of the right rectus femoris. Proximal iliotibial band: Intact. Iliopsoas tendon: Intact. Origin of the hamstring tendon: Intact. Rectus femoris muscle origins: Intact Ligamentum teres: Intact where visualized. LABRUM: Labrum: Ill-defined degeneration of the labrum, with amorphous intrasubstance signal change and tear involving the superior segment. Associated 3 mm paralabral cyst seen on image 10/5. Alpha angle of the femur: Within normal limits at less than 55 degrees. SOFT TISSUES: Visualized muscles: Normal bulk and internal signal. Quadratus femoris muscle: Normal. Proximal sciatic neurovascular bundle: Normal adjacent to the hamstring tendons. Other: No pelvic free fluid. Bladder: Normal. Genitourinary structures and bowel loops: Normal where visualized. IMPRESSION: Severe left hip adductor insertional tendinopathy and partial tear as detailed above, with gluteus minimus and medius muscle atrophy. Poorly defined superior labral tear. Adjacent 3 mm paralabral cyst. Dictated by: Trey Nelson M.D. on 09/12/2021 at 13:07 Approved by: Trey Nelson M.D. on 09/12/2021 at 13:15
== END ==
PROVIDERS: PCP Family Medicine; Referring Provider Family Medicine; Visit Provider Family Medicine
DX: S76.012A Strain of muscle, fascia and tendon of left hip, initial encounter (principal); S73.192A Other sprain of left hip, initial encounter; M25.552 Pain in left hip
CPT/HCPCS: 73721

== ENCOUNTER 2021-11-13 10:25 | Inpatient (IN) | payer MEDICARE, OTHER, SELFPAY ==
[2021-11-13] VITALS (13 sets, daily range): BP systolic 103–145; BP diastolic 62–100; PULSE 84–116; RESP 14–18; TEMP 36.9–37.9; O2SAT 94–99; BMI 26.9
[2021-11-13 10:45] LABS: Add Manual Diff / Slide Review NO; Basophils Absolute Auto 100 /uL (0-100); Basophils Percent Auto 0.4 % (0-2); Eosinophils Absolute Auto 0 /uL (0-450); Hematocrit 44.5 % (36-46); Hemoglobin 15.1 g/dL (12.0-16.0); Lymphocytes Absolute Auto 1100 /uL (1100-4500); Lymphocytes Percent Auto 6.4 % (25-40); Mean Corpuscular HGB Conc 33.9 % (30-36); Mean Corpuscular Hemoglobin 30.2 PG (26-34); Mean Corpuscular Volume 89.1 fL (80-100); Monocytes Absolute Auto 600 /uL (0-900); Monocytes Percent Auto 3.4 % (3-14); Neutrophils Absolute Auto 16000 /uL (1500-7000); Neutrophils Percent Auto 89.8 % (50-75); Platelet Count 311 X10^3/uL (150-400); White Blood Cell Count 17.8 X10^3/uL (4.5-11.0)
[2021-11-13 10:53] LABS: INR 1.2 (0.9-1.3); Prothrombin Time 13.8 SECONDS (10.1-12.7)
[2021-11-13 10:55] LABS: PTT Partial Thromboplastin Tim 31 SECONDS (26.4-36.2)
[2021-11-13 10:57] LABS: Alanine Aminotransferase 22 IU/L (<35); Albumin 4.8 g/dL (3.5-5.0); Albumin Globulin Ratio 1.4 (1.0-2.8); Alkaline Phosphatase 80 U/L (38-126); Aspartate Aminotransferase 27 IU/L (14-36); BUN Creatinine Ratio 11.6 (6-22); Bilirubin Total 1.7 mg/dL (0.2-1.3); Blood Urea Nitrogen 10 mg/dL (7-17); Carbon Dioxide 27 mmol/L (22-32); Chloride 95 mmol/L (98-107); Estimated Glomerular Filt Rate > 60.0 mL/min (>60); Globulin 3.4 g/dL (1.7-4.1); Glucose 118 mg/dL (80-110); HEMOLYSIS < 15 (0-50); Lipase 29 U/L (23-300); Sodium 132 mmol/L (137-145); Total Protein 8.2 g/dL (6.3-8.2)
--- NOTE | 2021-11-13 10:58 | ED_ITS ---
HPI - General Adult General Chief complaint: Abdominal Pain Stated complaint: Thinks Diverticulitis Time Seen by Provider: 11/13/21 10:58 Source: patient Mode of arrival: Ambulatory Limitations: no limitations History of Present Illness HPI narrative: 70-year-old female here for evaluation of several days of left-sided abdominal discomfort. She states she has had diverticulitis in the past. States this feels like prior episodes of diverticulitis just worse. Some nausea no vomiting. No blood in stool. No urinary symptoms. Has had a hysterectomy but no other abdominal surgeries. No fevers. Has a prescription for Cipro at home that she was given by her primary doctor in case her diverticulitis came back. She has had a total of 4 doses of this with the most recent being this morning. Related Data Home Medications Medication Instructions Recorded Confirmed calcium carbonate 300 mg (750 mg) 750 mg PO PRN PRN #0 12/28/17 11/13/21 chewable tablet (Tums E-X) Previous Rx's Medication Instructions Recorded letrozole 2.5 mg tablet (Femara) 2.5 mg PO DAILY #90 tab 04/09/21 atorvastatin 40 mg tablet (Lipitor) 40 mg PO HS #90 tab 09/02/21 lisinopril 10 mg tablet (Zestril) 10 mg PO QDAY #90 tab 09/02/21 Allergies Allergy/AdvReac Type Severity Reaction Status Date / Time amoxicillin [AMOXICILLIN] AdvReac Mild VOMITING Verified 11/13/21 10:34 codeine [CODEINE] AdvReac Mild GI Verified 11/13/21 10:34 INTOLERANCE erythromycin base AdvReac Mild GI Verified 11/13/21 10:34 [ERYTHROMYCIN BASE] INTOLERANCE Review of Systems Constitutional Constitutional: Denies fatigue and Denies fever(s) Cardiovascular Cardiovascular: Reports system reviewed and no additional complaints, except as documented Respiratory Respiratory: Reports system reviewed and no additional complaints, except as documented Gastrointestinal Gastrointestinal: Reports abdominal pain, Reports nausea and Denies vomiting Genitourinary Genitourinary: Denies dysuria Musculoskeletal Musculoskeletal: Reports system reviewed and no additional complaints, except as documented Integumentary/Breasts Skin/Breast: Reports system reviewed and no additional complaints, except as documented Neurologic Neurologic: Reports system reviewed and no additional complaints, except as documented Endocrine Endocrine: Denies fatigue Hematologic/Lymphatic On Anticoagulants: No Allergic/Immunologic Allergic/Immunologic: Reports system reviewed and no additional complaints, except as documented Patient History Medical History Breast cancer Bursitis of left hip Cataracts, bilateral (~2009) Cervical somatic dysfunction Chicken pox Colon polyps Diverticular disease (~2014) Essential hypertension Gastric polyps GERD (gastroesophageal reflux disease) Herpes Hyperlipidemia Hypertension (~2014) Iliotibial band syndrome, left leg Measles (~1979) Migraines Mild aortic regurgitation Mumps Ovarian cyst (~2006) Pelvic somatic dysfunction Piriformis syndrome of left side Ruptured tympanic membrane (~2008) Sacral region somatic dysfunction Segmental and somatic dysfunction of abdomen and other regions Brar splint of left lower extremity Somatic dysfunction of lower extremity Verruca warts (infectious) Vision disorder Whooping cough (~1955) Surgical History Anesthesia S/P total abdominal hysterectomy and bilateral salpingo-oophorectomy (~2006) Status post biopsy (~1994) Status post cataract extraction of both eyes with insertion of intraocular lens (~2017) Family History Father Hypertension Grandfather Heart disease Grandfather Heart disease Brother No problems noted. Brother No problems noted. Family/Other Stomach cancer Grandmother No problems noted. Mother No problems noted. Social History household members: none occupational status: previously employed Smoking Status: Never smoker alcohol intake: current Smoking Status: Never smoker alcohol intake frequency: holidays/special occasions only Alcohol type: wine Substance Use Type: does not use Exam Initial Vital Signs Initial Vital Signs: Vital Signs Temperature 98.5 F 11/13/21 10:30 Pulse Rate 116 H 11/13/21 10:30 Respiratory Rate 15 11/13/21 10:30 Blood Pressure 139/100 H 11/13/21 10:30 Pulse Oximetry 97 11/13/21 10:30 Const General: cooperative and No ill appearing HENMT Head: normal to inspection and normocephalic Resp Effort & Inspection: normal respiratory effort Auscultation: clear to auscultation bilaterally Cardio Rate: tachycardic Rhythm: regular rhythm GI Palpation: soft, No firm and tender Skin General: no rashes or lesions noted Neuro General: patient alert, patient awake, patient oriented x3 and moves all extremities Speech: speech normal Extrem General: normal to inspection and capillary refill normal Psych Appearance: grossly normal and well kempt Scores GCS Shreyas coma scale eye opening: Spontaneous [place] coma scale verbal response: Orientated Shreyas coma scale motor response: Obey commands Shreyas coma scale total score: 15 Course Orders Ordered: ED Orders 11/13/21 10:38 Complete Blood Count AUTO DIFF Stat Comprehensive Metabolic Panel Stat Lipase Stat Partial Thromboplastin Time Stat Prothrombin Time INR Stat 11/13/21 11:05 CT abdomen pelvis w con Stat 11/13/21 12:15 COVID19 -Nasal swab/Pre-Proc Stat Acetaminophen (Acetaminophen 325 Mg Tablet) 650 mg PO Q6HR PRN PRN Reason: Fever/Mild Pain (1-3) Enoxaparin Sodium (Enoxaparin 40 Mg/0.4 Ml Syringe) 40 mg SUBCUT DAILY [facility] Piperacillin Sod/Tazobactam (Sod 3.375 gm/ Sodium Chloride) 100 mls @ 25 mls/hr IV Q8H [facility] Last Admin: 11/13/21 15:38 Dose: 25 mls/hr Documented by: CMCFARL Sodium Chloride (Normal Saline 0.9%) 1,000 mls @ 125 mls/hr IV CONT [facility] Last Admin: 11/13/21 15:38 Dose: 125 mls/hr Documented by: CMCFARL Ketorolac Tromethamine (Ketorolac 30 Mg/Ml Vial) 15 mg IV Q6H PRN PRN Reason: Pain, Moderate (4-6) Stop: 11/18/21 15:39 Last Admin: 11/13/21 16:00 Dose: 15 mg Documented by: CMCFARL Letrozole (Letrozole 2.5 Mg Tablet) 2.5 mg PO DAILY [facility] Morphine Sulfate (Morphine 4 Mg/Ml Inj) 4 mg IV Q4HR PRN PRN Reason: Pain, Severe (7-10) Last Admin: 11/13/21 13:10 Dose: 2 mg Documented by: KKNOTT Naloxone HCl (Naloxone 0.4 Mg/Ml Vial) 0.2 mg IV Q2MIN PRN PRN Reason: Opiate Reversal Ondansetron HCl (Ondansetron 4 Mg/2 Ml Inj) 4 mg IV Q8HR PRN PRN Reason: Nausea And Vomiting Oxycodone HCl (Oxycodone Ir 5 Mg Tablet) 5 mg PO Q4HR PRN PRN Reason: Pain, Moderate (4-6) Last Admin: 11/13/21 14:01 Dose: 5 mg Documented by: ALAYNA Discontinued Medications Sodium Chloride (Normal Saline 0.9%) 1,000 mls @ 1,000 mls/hr IV BOLUS ONE Stop: 11/13/21 11:58 Last Infusion: 11/13/21 12:20 Dose: 0 mls/hr Documented by: Admin: 11/13/21 11:31 Dose: 1,000 mls/hr Documented by: TREVOR Piperacillin Sod/Tazobactam (Sod 4.5 gm/ Sodium Chloride) 100 mls @ 200 mls/hr IV NOW ONE Stop: 11/13/21 11:58 Last Infusion: 11/13/21 12:40 Dose: 0 mls/hr Documented by: Admin: 11/13/21 12:10 Dose: 200 mls/hr Documented by: TREVOR Metronidazole (Flagyl) 500 mg in 100 mls @ 100 mls/hr IV NOW ONE Stop: 11/13/21 12:56 Last Infusion: 11/13/21 13:45 Dose: 0 mls/hr Documented by: Admin: 11/13/21 12:50 Dose: 100 mls/hr Documented by: DAVID Sodium Chloride (Normal Saline 0.9%) 1,000 mls @ 1,000 mls/hr IV BOLUS ONE Stop: 11/13/21 13:44 Last Admin: 11/13/21 13:58 Dose: 1,000 mls/hr Documented by: ALAYNA Vital Signs Vital signs: Vital Signs - 8 hr 11/13/21 10:30 11/13/21 10:33 11/13/21 11:00 Temperature 98.5 F Pulse Rate 116 H 114 H 101 H Respiratory Rate 15 Blood Pressure 139/100 H Pulse Oximetry 97 98 96 11/13/21 11:34 11/13/21 12:00 Temperature Pulse Rate 99 H 98 H Respiratory Rate Blood Pressure 144/86 H 145/93 H Pulse Oximetry 97 97 Medical Decision Making Lab Data Lab results reviewed: Yes I reviewed the patient's lab results. Result diagrams: 11/13/21 10:38 11/13/21 10:38 Labs: Lab Results 11/13/21 11/13/21 11/13/21 Range/Units 10:38 10:38 10:38 WBC 17.8 H (4.5-11.0) X10^3/uL RBC 5.00 (4.0-5.2) X10^6/uL Hgb 15.1 (12.0-16.0) g/dL Hct 44.5 (36-46) % MCV 89.1 (80-100) fL MCH 30.2 (26-34) PG MCHC 33.9 (30-36) % RDW 14.0 (11.6-14.8) % Plt Count 311 (150-400) X10^3/uL Neut % (Auto) 89.8 H (50-75) % Lymph % (Auto) 6.4 L (25-40) % [place] % (Auto) 3.4 (3-14) % Eos % (Auto) 0.0 L (2-4) % Baso % (Auto) 0.4 (0-2) % Neut # (Auto) 74867 H (4990-5240) /uL Lymph # (Auto) 1100 (2022-1084) /uL [place] # (Auto) 600 (0-900) /uL Eos # (Auto) 0 (0-450) /uL Baso # (Auto) 100 (0-100) /uL PT 13.8 H (10.1-12.7) SECONDS INR 1.2 (0.9-1.3) APTT 31 (26.4-36.2) SECONDS Sodium 132 L (137-145) mmol/L Potassium 4.0 (3.4-5.1) mmol/L Chloride 95 L (98-107) mmol/L Carbon Dioxide 27 (22-32) mmol/L BUN 10 (7-17) mg/dL Creatinine 0.86 (0.52-1.04) mg/dL Estimated GFR > 60.0 (>60) mL/min BUN/Creatinine Ratio 11.6 (6-22) Glucose 118 H (80-110) mg/dL Lactate (0.7-2.1) mmol/L Calcium 10.0 (8.4-10.2) mg/dL Total Bilirubin 1.7 H (0.2-1.3) mg/dL AST 27 (14-36) IU/L ALT 22 (<35) IU/L Alkaline Phosphatase 80 (38-126) U/L Total Protein 8.2 (6.3-8.2) g/dL Albumin 4.8 (3.5-5.0) g/dL Globulin 3.4 (1.7-4.1) g/dL Albumin/Globulin Ratio 1.4 (1.0-2.8) Lipase 29 (23-300) U/L SARS-CoV-2 (PCR) (Negative) 11/13/21 11/13/21 Range/Units 10:38 12:15 WBC (4.5-11.0) X10^3/uL RBC (4.0-5.2) X10^6/uL Hgb (12.0-16.0) g/dL Hct (36-46) % MCV (80-100) fL MCH (26-34) PG MCHC (30-36) % RDW (11.6-14.8) % Plt Count (150-400) X10^3/uL Neut % (Auto) (50-75) % Lymph % (Auto) (25-40) % [place] % (Auto) (3-14) % Eos % (Auto) (2-4) % Baso % (Auto) (0-2) % Neut # (Auto) (6060-6291) /uL Lymph # (Auto) (3114-4151) /uL [place] # (Auto) (0-900) /uL Eos # (Auto) (0-450) /uL Baso # (Auto) (0-100) /uL PT (10.1-12.7) SECONDS INR (0.9-1.3) APTT (26.4-36.2) SECONDS Sodium (137-145) mmol/L Potassium (3.4-5.1) mmol/L Chloride (98-107) mmol/L Carbon Dioxide (22-32) mmol/L BUN (7-17) mg/dL Creatinine (0.52-1.04) mg/dL Estimated GFR (>60) mL/min BUN/Creatinine Ratio (6-22) Glucose (80-110) mg/dL Lactate 2.6 H (0.7-2.1) mmol/L Calcium (8.4-10.2) mg/dL Total Bilirubin (0.2-1.3) mg/dL AST (14-36) IU/L ALT (<35) IU/L Alkaline Phosphatase (38-126) U/L Total Protein (6.3-8.2) g/dL Albumin (3.5-5.0) g/dL Globulin (1.7-4.1) g/dL Albumin/Globulin Ratio (1.0-2.8) Lipase (23-300) U/L SARS-CoV-2 (PCR) Negative (Negative) Urine Dip Bedside Urine Glucose Negative Bedside Urine Bilirubin - Negative Bedside Urine Ketone + 15 Urine Specific [place] 1.015 Bedside Urine Occult Blood +/- Bedside Urine pH 5.5 Bedside Urine Protein - Negative Bedside Urine Urobilinogen - Negative Bedside Urine Nitrite - Negative Bedside Urine Leukocytes - Negative Esterase Point of care testing: Urine Dip Bedside Urine Glucose Negative Bedside Urine Bilirubin - Negative Bedside Urine Ketone + 15 Urine Specific [place] 1.015 Bedside Urine Occult Blood +/- Bedside Urine pH 5.5 Bedside Urine Protein - Negative Bedside Urine Urobilinogen - Negative Bedside Urine Nitrite - Negative Bedside Urine Leukocytes - Negative Esterase Imaging Data CT scan - abdomen/pelvis: Radiologist's Impression: [place] [address] CT Scan Report Signed Patient: Remington Pena MR#: [id number] : 1950 Acct:[id number] Age/Sex: 70 / F Date of Service: 11/13/21 Loc: ED Accession Number: [id number] ?? Procedure: CT abdomen pelvis w con Ordering Provider: Gerardo Vieira D.O. PROCEDURE:? CT ABDOMEN PELVIS W CON ? INDICATIONS:? LLQ ABD pain hx of diverticulitis concern for abscess ? TECHNIQUE:? After the administration of intravenous contrast, axial sections acquired from the lung bases to the pubic symphysis.? Coronal and sagittal reformats were performed.? For radiation dose reduction, the following was used:? automated exposure control, adjustment of mA and/or kV according to patient size.? ? COMPARISON:? [facility], CT, ABDOMEN/PELVIS WITH CONTRAST, 03/12/2016, 11:41. ? FINDINGS:? Image quality:? Excellent.? ? Lung bases:? Unremarkable. Heart:? No significant findings. ? ABDOMEN: Liver:? Unremarkable.? ? Gallbladder:? Is grossly unremarkable? ? Biliary ducts:? Unremarkable.? ? Pancreas:? Unremarkable.? ? Spleen:? Unremarkable.? ? Adrenal Glands:? Unremarkable.? ? Kidneys and Ureters:? Unremarkable.? ? ? Stomach and Bowel:? Small hiatal hernia.? Stomach and small bowel are grossly unremarkable.? Appendix is normal.? Colon is nondistended.? Diverticulosis of the descending and sigmoid colon is present.? There is moderate thickening of the distal descending and proximal sigmoid colon, which demonstrates severe surrounding fat stranding.? Small pericolonic abscess adjacent to the proximal sigmoid colon within the left hemipelvis measuring roughly 30 mm.? Peritoneum:? No abnormal intraperitoneal fluid.? No free air.? ? Ventral Wall: ? No hernias.? Abdominal Nodes:? No retroperitoneal or mesenteric adenopathy by size criteria.? Vessels:? Aorta and inferior vena cava are normal in size.? ? PELVIS: Pelvic Organs:? Unremarkable.? ? Bladder:? Unremarkable.? ? Pelvic Nodes: No enlarged lymph nodes.? Miscellaneous: No hernias are seen. ? ? ? Bones:? Unremarkable.? IMPRESSION:? 1. Diverticulitis of the descending/sigmoid colon, with small pericolonic abscess.? Follow-up colonoscopy is recommended to exclude underlying malignancy. 2. Normal appendix. 3. Small hiatal hernia.? ? ? Dictated by: Chavez Alicea M.D. on 11/13/2021 at 11:16 ? ? Approved by: Chavez Alicea M.D. on 11/13/2021 at 11:18?? [facility] Narrative Medical decision making narrative: Patient appears to be uncomfortable. CT scan was ordered not necessarily for a confirmation of the diverticulitis diagnosis but to evaluate for complications. Does have leukocytosis. And does have CT scan showing small abscess that is not amenable to surgery drainage. Lactate of 2.8. Antibiotics were administered. Not hypotensive. No indication for 30 cc/kilogram of fluids. Discussed the case with Dr. Santiago with general surgery. He recommended admission to Medicine Service. Discussed case Dr. Holt who will admit for further evaluation and treatment. Discussed the need for admission with the patient she expressed understanding as well. Was given antibiotics here in the emergency department. Discharge Plan Departure Patient Disposition: Admitted As Inpatient Clinical Impression: Diverticulitis Admit Date/Time: 11/13/21 12:18 Admit Provider: García Holt
--- NOTE | 2021-11-13 11:05 | DI.CT.S_ITS ---
PROCEDURE: CT ABDOMEN PELVIS W CON INDICATIONS: LLQ ABD pain hx of diverticulitis concern for abscess TECHNIQUE: After the administration of intravenous contrast, axial sections acquired from the lung bases to the pubic symphysis. Coronal and sagittal reformats were performed. For radiation dose reduction, the following was used: automated exposure control, adjustment of mA and/or kV according to patient size. COMPARISON: [facility], CT, ABDOMEN/PELVIS WITH CONTRAST, 03/12/2016, 11:41. FINDINGS: Image quality: Excellent. Lung bases: Unremarkable. Heart: No significant findings. ABDOMEN: Liver: Unremarkable. Gallbladder: Is grossly unremarkable Biliary ducts: Unremarkable. Pancreas: Unremarkable. Spleen: Unremarkable. Adrenal Glands: Unremarkable. Kidneys and Ureters: Unremarkable. Stomach and Bowel: Small hiatal hernia. Stomach and small bowel are grossly unremarkable. Appendix is normal. Colon is nondistended. Diverticulosis of the descending and sigmoid colon is present. There is moderate thickening of the distal descending and proximal sigmoid colon, which demonstrates severe surrounding fat stranding. Small pericolonic abscess adjacent to the proximal sigmoid colon within the left hemipelvis measuring roughly 30 mm. Peritoneum: No abnormal intraperitoneal fluid. No free air. Ventral Wall: No hernias. Abdominal Nodes: No retroperitoneal or mesenteric adenopathy by size criteria. Vessels: Aorta and inferior vena cava are normal in size. PELVIS: Pelvic Organs: Unremarkable. Bladder: Unremarkable. Pelvic Nodes: No enlarged lymph nodes. Miscellaneous: No hernias are seen. Bones: Unremarkable. IMPRESSION: 1. Diverticulitis of the descending/sigmoid colon, with small pericolonic abscess. Follow-up colonoscopy is recommended to exclude underlying malignancy. 2. Normal appendix. 3. Small hiatal hernia. Dictated by: Chavez Alicea M.D. on 11/13/2021 at 11:16 Approved by: Chavez Alicea M.D. on 11/13/2021 at 11:18
[2021-11-13] MEDS: SODIUM CHLORIDE 0.9% 1,000 ML 1000 ML IV ×2 (11:31→13:58)
[2021-11-13] MEDS: PIPERACILLIN/TAZO 4.5 GM in SODIUM CHLORIDE 0.9% 100 ML 200 ML IV (12:10)
[2021-11-13 12:43] LABS: COVID19 -Nasal RAPID Negative (Negative)
[2021-11-13] MEDS: metroNIDAZOLE 500 MG/100 ML PIGGYBACK 100 MG IV (12:50)
[2021-11-13] MEDS: MORPHINE 4 MG/ML INJ IV (13:10)
[2021-11-13 13:29] LABS: Lactate (Lactic Acid) 2.6 mmol/L (0.7-2.1)
--- NOTE | 2021-11-13 13:33 | PC.NURSE ---
Pt to room 204 via stretcher and ambulated to bed independently. Pt is awake, alert, and oriented x 3. Pt states she is having pain-pain meds given. Pt denies nausea or shortness of breath. Pt oriented to room, call light, bed controls and tv controls. Pt's friend is at the bedside. Pt denies needs at this time and agrees to call for assistance as needed.
--- NOTE | 2021-11-13 13:48 | PM.HP.1 ---
History of Present Illness History of Present Illness Date Patient Seen: 11/13/21 Time Patient Seen: 12:00 Chief complaint: Thinks Diverticulitis Narrative: Ms. Pena is a 70W with PMH breast cancer, HTN, previous diverticulitis who presents with abdominal pain. She notes having abdominal pain start two days ago. She had an old prescription for cipro only, took it twice a day for two days. She did not have any medication for anaerobic infection. She continued to get worse and had severe abdominal pain this morning so presented to the ED. In the ED, workup was done, initial vitals notable for heart rate in 110s. Labs notable for WBC 17.8, Na 132, creatinine 0.86. INR 1.2. UA negative, lactate 2.6. CT abdomen showed diverticulitis of the descending colon with small pericolonic abscess. She was ordered for IV fluids and IV antibiotics and admitted for further treatment. Patient History Medical History Breast cancer Bursitis of left hip Cataracts, bilateral (~2009) Cervical somatic dysfunction Chicken pox Colon polyps Diverticular disease (~2014) Essential hypertension Gastric polyps GERD (gastroesophageal reflux disease) Herpes Hyperlipidemia Hypertension (~2014) Iliotibial band syndrome, left leg Measles (~1979) Migraines Mild aortic regurgitation Mumps Ovarian cyst (~2006) Pelvic somatic dysfunction Piriformis syndrome of left side Ruptured tympanic membrane (~2008) Sacral region somatic dysfunction Segmental and somatic dysfunction of abdomen and other regions Brar splint of left lower extremity Somatic dysfunction of lower extremity Verruca warts (infectious) Vision disorder Whooping cough (~1955) Surgical History Anesthesia S/P total abdominal hysterectomy and bilateral salpingo-oophorectomy (~2006) Status post biopsy (~1994) Status post cataract extraction of both eyes with insertion of intraocular lens (~2017) Family & Social History Family History Father Hypertension Grandfather Heart disease Grandfather Heart disease Brother No problems noted. Brother No problems noted. Family/Other Stomach cancer Grandmother No problems noted. Mother No problems noted. Social History: household members none Prior Living Arrangements House Safety & Behavioral: Feels Safe in Current Yes Environment Been Physically Hurt or No Threatened By a Person Suicidal Ideation Description None Suicide Plan Description No Plan Tobacco & Substance use: Smoking Status Never smoker alcohol intake current alcohol intake frequency holiday/special occasion Substance Use Type does not use Meds Home Medications and Allergies Home Medications Medication Instructions Recorded Confirmed Type calcium carbonate 300 mg (750 mg) 750 mg PO PRN PRN #0 12/28/17 11/13/21 History chewable tablet (Tums E-X) letrozole 2.5 mg tablet (Femara) 2.5 mg PO DAILY #90 tab 04/09/21 11/13/21 Rx atorvastatin 40 mg tablet (Lipitor) 40 mg PO HS #90 tab 09/02/21 11/13/21 Rx lisinopril 10 mg tablet (Zestril) 10 mg PO QDAY #90 tab 09/02/21 11/13/21 Rx Allergies Allergy/AdvReac Type Severity Reaction Status Date / Time amoxicillin [AMOXICILLIN] AdvReac Mild VOMITING Verified 11/13/21 10:34 codeine [CODEINE] AdvReac Mild GI Verified 11/13/21 10:34 INTOLERANCE erythromycin base AdvReac Mild GI Verified 11/13/21 10:34 [ERYTHROMYCIN BASE] INTOLERANCE Review of Systems Review of Systems Narrative: 14 systems reviewed and negative aside from what is noted in HPI Exam Vital Signs (past 8 hours): - 11/13/21 10:30 11/13/21 10:33 11/13/21 11:00 Temperature 98.5 F Pulse Rate 116 H 114 H 101 H Respiratory Rate 15 Blood Pressure 139/100 H Pulse Oximetry 97 98 96 11/13/21 11:34 11/13/21 12:00 11/13/21 13:36 Temperature Pulse Rate 99 H 98 H Respiratory Rate Blood Pressure 144/86 H 145/93 H Pulse Oximetry 97 97 98 Oxygen Delivery Method Room Air Oxygen Flow Rate 0 Narrative Exam Narrative: GEN: mild distress from pain HEENT: moist mucous membranes, PERRL NECK: trachea midline, no JVD CV: regular rate and rhythm, no murmurs PULM: clear bilaterally, no wheezes, rhonchi, rales ABD: soft, diffusely tender, but especially left side, diminished bowel sounds, no rebound/guarding EXT: warm and well perfused with no edema NEURO: awake, alert, oriented, no focal deficits Objective Labs Result Diagrams: 11/13/21 10:38 11/13/21 10:38 Labs: Laboratory Results - last 24 hr 11/13/21 11/13/21 11/13/21 10:38 10:38 10:38 WBC 17.8 H RBC 5.00 Hgb 15.1 Hct 44.5 MCV 89.1 MCH 30.2 MCHC 33.9 RDW 14.0 Plt Count 311 Neut % (Auto) 89.8 H Lymph % (Auto) 6.4 L [place] % (Auto) 3.4 Eos % (Auto) 0.0 L Baso % (Auto) 0.4 Neut # (Auto) 79021 H Lymph # (Auto) 1100 [place] # (Auto) 600 Eos # (Auto) 0 Baso # (Auto) 100 PT 13.8 H INR 1.2 APTT 31 Sodium 132 L Potassium 4.0 Chloride 95 L Carbon Dioxide 27 BUN 10 Creatinine 0.86 Estimated GFR > 60.0 BUN/Creatinine Ratio 11.6 Glucose 118 H Lactate Calcium 10.0 Total Bilirubin 1.7 H AST 27 ALT 22 Alkaline Phosphatase 80 Total Protein 8.2 Albumin 4.8 Globulin 3.4 Albumin/Globulin Ratio 1.4 Lipase 29 SARS-CoV-2 (PCR) 11/13/21 11/13/21 10:38 12:15 WBC RBC Hgb Hct MCV MCH MCHC RDW Plt Count Neut % (Auto) Lymph % (Auto) [place] % (Auto) Eos % (Auto) Baso % (Auto) Neut # (Auto) Lymph # (Auto) [place] # (Auto) Eos # (Auto) Baso # (Auto) PT INR APTT Sodium Potassium Chloride Carbon Dioxide BUN Creatinine Estimated GFR BUN/Creatinine Ratio Glucose Lactate 2.6 H Calcium Total Bilirubin AST ALT Alkaline Phosphatase Total Protein Albumin Globulin Albumin/Globulin Ratio Lipase SARS-CoV-2 (PCR) Negative Assessment & Plan Assessment & Plan narrative: Ms. Pena is a 70W who presents to the hospital with abdominal pain found to have sepsis from acute diverticulitis with complication of pericolonic abscess. 1. Sepsis from diverticulitis and pericolonic abscess -patient had self medicated and inadequately treated with cipro monotherapy prior to arrival -on arrival she was tachycardic, leukocytosis, and elevated lactate 2.6, with end organ dysfunction bilirubin 1.7 -she is quite tender on exam -appreciate surgery consult, no need for surgery currently, recommend IV antibiotics, can reconsider if patient does not improve -with IV fluid in ED, lactate has improved -blood cultures ordered, not ordered in ED -continue IV zosyn -clear liquid diet -IV morphine for pain control -consider outpatient colonoscopy 2. Hypertension -hold candis-inhibitor given sepsis 3. History of breast cancer -continue letrozole CODE: Full Proxy: Annalisa Richter, daughter I have utilized all available resources to reconcile the patient's home medications. Time Spent With Patient Critical Care time: I spent a total of [] minutes of critical care time on this patient's care today; this time is exclusive of procedural time. Quality VTE Deep Vein Thrombosis/Pulmonary Embolism Present on Admission: No MIPS - Admit I confirm the patient?s Advance Care Plan is present, Code status is documented, Surrogate decision maker is in patient?s record [If Yes, STOP here]: Yes
[2021-11-13] MEDS: OXYCODONE IR 5 MG TABLET PO (14:01)
[2021-11-13 15:07] LABS: Lactate (Lactic Acid) 1.2 mmol/L (0.7-2.1)
[2021-11-13 15:10] LABS: Reflexed Lactate in 2 Hours Y
[2021-11-13] MEDS: PIPERACILLIN/TAZO 3.375 GM in SODIUM CHLORIDE 0.9% 100 ML 25 ML IV ×2 (15:38→23:38)
[2021-11-13] MEDS: SODIUM CHLORIDE 0.9% 1,000 ML 125 ML IV (15:38)
[2021-11-13] MEDS: KETOROLAC 30 MG/ML VIAL 15 MG IV (16:00)
[2021-11-13] MEDS: ACETAMINOPHEN 325 MG TABLET 650 MG PO (23:37)
[2021-11-14] VITALS (18 sets, daily range): BP systolic 96–138; BP diastolic 64–84; PULSE 79–91; RESP 14–18; TEMP 36.3–37.8; O2SAT 94–98
[2021-11-14] MEDS: SODIUM CHLORIDE 0.9% 1,000 ML 125 ML IV ×3 (04:13→20:30)
[2021-11-14] MEDS: KETOROLAC 30 MG/ML VIAL 15 MG IV ×2 (06:54→13:00)
[2021-11-14 07:22] LABS: Blood Urea Nitrogen 7 mg/dL (7-17); Calcium 8.6 mg/dL (8.4-10.2); Carbon Dioxide 26 mmol/L (22-32); Chloride 104 mmol/L (98-107); Estimated Glomerular Filt Rate > 60.0 mL/min (>60); Glucose 95 mg/dL (80-110); HEMOLYSIS < 15 (0-50); Potassium 3.9 mmol/L (3.4-5.1); Sodium 131 mmol/L (137-145)
[2021-11-14 07:26] LABS: Add Manual Diff / Slide Review NO; Basophils Absolute Auto 0 /uL (0-100); Basophils Percent Auto 0.3 % (0-2); Eosinophils Absolute Auto 0 /uL (0-450); Eosinophils Percent Auto 0.2 % (2-4); Lymphocytes Absolute Auto 800 /uL (1100-4500); Lymphocytes Percent Auto 6.7 % (25-40); Mean Corpuscular HGB Conc 33.4 % (30-36); Mean Corpuscular Volume 89.9 fL (80-100); Monocytes Absolute Auto 600 /uL (0-900); Monocytes Percent Auto 4.7 % (3-14); Neutrophils Absolute Auto 10300 /uL (1500-7000); Neutrophils Percent Auto 88.1 % (50-75); Platelet Count 208 X10^3/uL (150-400); White Blood Cell Count 11.7 X10^3/uL (4.5-11.0)
[2021-11-14] MEDS: PIPERACILLIN/TAZO 3.375 GM in SODIUM CHLORIDE 0.9% 100 ML 25 ML IV ×3 (08:03→23:51)
[2021-11-14] MEDS: LETROZOLE 2.5 MG TABLET PO (08:15)
[2021-11-14] MEDS: ENOXAPARIN 40 MG/0.4 ML SYRINGE SUBCUT (08:15)
--- NOTE | 2021-11-14 10:28 | PM.PN.1 ---
Subjective Subjective Interval history: Ms. Pena is a 70W with PMH breast cancer, HTN, previous diverticulitis who presents with abdominal pain. In the ED, workup was done, initial vitals notable for heart rate in 110s. Labs notable for WBC 17.8, Na 132, creatinine 0.86. INR 1.2. UA negative, lactate 2.6. CT abdomen showed diverticulitis of the descending colon with small pericolonic abscess. she was admitted and placed on IV antibiotics with Zosyn 3.375 g IV q.8 hours. This morning she states her pain has improved. Exam Vital Signs (past 8 hours): - 11/14/21 04:01 11/14/21 04:12 11/14/21 04:35 Temperature 99.0 F Pulse Rate 83 83 Respiratory Rate 14 14 Blood Pressure 96/64 Pulse Oximetry 94 94 94 11/14/21 06:45 11/14/21 07:44 11/14/21 07:55 Temperature 98.7 F 100.0 F H Pulse Rate 86 Respiratory Rate 18 Blood Pressure 120/73 Pulse Oximetry 98 95 Oxygen Delivery Method Room Air Oxygen Flow Rate 0 Narrative Exam Narrative: Exam Narrative: GEN: mild distress from pain HEENT: moist mucous membranes, PERRL NECK: trachea midline, no JVD CV: regular rate and rhythm, no murmurs PULM: clear bilaterally, no wheezes, rhonchi, rales ABD: soft, minimal to mild tenderness to palpation, but especially left side, diminished bowel sounds, no rebound/guarding EXT: warm and well perfused with no edema NEURO: awake, alert, oriented, no focal deficits Objective Labs Result Diagrams: 11/14/21 06:44 11/14/21 06:44 Labs: Laboratory Results - last 24 hr 11/13/21 11/13/21 11/13/21 10:38 10:38 10:38 WBC 17.8 H RBC 5.00 Hgb 15.1 Hct 44.5 MCV 89.1 MCH 30.2 MCHC 33.9 RDW 14.0 Plt Count 311 Neut % (Auto) 89.8 H Lymph % (Auto) 6.4 L [place] % (Auto) 3.4 Eos % (Auto) 0.0 L Baso % (Auto) 0.4 Neut # (Auto) 16831 H Lymph # (Auto) 1100 [place] # (Auto) 600 Eos # (Auto) 0 Baso # (Auto) 100 PT 13.8 H INR 1.2 APTT 31 Sodium 132 L Potassium 4.0 Chloride 95 L Carbon Dioxide 27 BUN 10 Creatinine 0.86 Estimated GFR > 60.0 BUN/Creatinine Ratio 11.6 Glucose 118 H Lactate Calcium 10.0 Total Bilirubin 1.7 H AST 27 ALT 22 Alkaline Phosphatase 80 Total Protein 8.2 Albumin 4.8 Globulin 3.4 Albumin/Globulin Ratio 1.4 Lipase 29 SARS-CoV-2 (PCR) 11/13/21 11/13/21 11/13/21 10:38 12:15 14:45 WBC RBC Hgb Hct MCV MCH MCHC RDW Plt Count Neut % (Auto) Lymph % (Auto) [place] % (Auto) Eos % (Auto) Baso % (Auto) Neut # (Auto) Lymph # (Auto) [place] # (Auto) Eos # (Auto) Baso # (Auto) PT INR APTT Sodium Potassium Chloride Carbon Dioxide BUN Creatinine Estimated GFR BUN/Creatinine Ratio Glucose Lactate 2.6 H 1.2 Calcium Total Bilirubin AST ALT Alkaline Phosphatase Total Protein Albumin Globulin Albumin/Globulin Ratio Lipase SARS-CoV-2 (PCR) Negative 11/14/21 11/14/21 06:44 06:44 WBC 11.7 H RBC 4.00 Hgb 12.0 Hct 36.0 MCV 89.9 MCH 30.0 MCHC 33.4 RDW 14.0 Plt Count 208 Neut % (Auto) 88.1 H Lymph % (Auto) 6.7 L [place] % (Auto) 4.7 Eos % (Auto) 0.2 L Baso % (Auto) 0.3 Neut # (Auto) 20992 H Lymph # (Auto) 800 L [place] # (Auto) 600 Eos # (Auto) 0 Baso # (Auto) 0 PT INR APTT Sodium 131 L Potassium 3.9 Chloride 104 Carbon Dioxide 26 BUN 7 Creatinine 0.78 Estimated GFR > 60.0 BUN/Creatinine Ratio 9.0 Glucose 95 Lactate Calcium 8.6 Total Bilirubin AST ALT Alkaline Phosphatase Total Protein Albumin Globulin Albumin/Globulin Ratio Lipase SARS-CoV-2 (PCR) [facility] Medical History Breast cancer Bursitis of left hip Cataracts, bilateral (~2009) Cervical somatic dysfunction Chicken pox Colon polyps Diverticular disease (~2014) Essential hypertension Gastric polyps GERD (gastroesophageal reflux disease) Herpes Hyperlipidemia Hypertension (~2014) Iliotibial band syndrome, left leg Measles (~1979) Migraines Mild aortic regurgitation Mumps Ovarian cyst (~2006) Pelvic somatic dysfunction Piriformis syndrome of left side Ruptured tympanic membrane (~2008) Sacral region somatic dysfunction Segmental and somatic dysfunction of abdomen and other regions Brar splint of left lower extremity Somatic dysfunction of lower extremity Verruca warts (infectious) Vision disorder Whooping cough (~1955) Surgical History Anesthesia S/P total abdominal hysterectomy and bilateral salpingo-oophorectomy (~2006) Status post biopsy (~1994) Status post cataract extraction of both eyes with insertion of intraocular lens (~2017) Family History Father Hypertension Grandfather Heart disease Grandfather Heart disease Brother No problems noted. Brother No problems noted. Family/Other Stomach cancer Grandmother No problems noted. Mother No problems noted. Social History household members: none occupational status: previously employed Smoking Status: Never smoker alcohol intake: current Assessment & Plan Assessment & Plan narrative: Ms. Pena is a 70W who presents to the hospital with abdominal pain found to have sepsis from acute diverticulitis with complication of pericolonic abscess. 1. Sepsis from -on arrival she was tachycardic, leukocytosis, and elevated lactate 2.6, with end organ dysfunction bilirubin 1.7 - elevated lactate resolved with IV fluid resuscitation -continue IV zosyn 2. diverticulitis and pericolonic abscess -appreciate surgery consult, no need for surgery currently, recommend IV antibiotics, can reconsider if patient does not improve -blood cultures ordered -clear liquid diet -IV morphine for pain control -continue IV zosyn -consider outpatient colonoscopy 2. Hypertension -hold candis-inhibitor given sepsis 3. History of breast cancer -continue letrozole COVID-19 COVID-19 status: Negative (11/13/2021) Time Spent With Patient Critical Care time: I spent a total of [] minutes of critical care time on this patient's care today; this time is exclusive of procedural time. Quality VTE Deep Vein Thrombosis/Pulmonary Embolism Present on Admission: No
--- NOTE | 2021-11-14 14:57 | CM.IDA ---
Initial DCP Assessment Note 70 yo female resident of [facility], admitted for sepsis from diverticulitis and pericolonic abscess. IV F and IV abx running PCP: Jeffery Paz Payer: [employer]/Rajesh Discharge Planning/Care Management CM Discharge Assessment Start: 11/14/21 14:36 Freq: Status: Active Protocol: Document 11/14/21 14:40 GLORIA (Rec: 11/14/21 14:56 GLORIA [id number]) Discharge Planning Assessment Assigned Vessel Ordinary Seaman MAG Stanley DPOA/Assigned Designee Name Annalisa Richter dtr cell ([place]) Contact Information Edward Pena, brother cell [phone] ([place]) Advance Directives? Yes Advance Directives on File Yes History Provided By Patient,Medical Record Prior Living Arrangements House Household Members none Type of transporation used prior to Drives own vehicle admit Independent with ADL's Yes Is patient alert and oriented? Yes Barriers to Discharge No Comment Likely return home w/close outpatient f/u, unless condition worsens, surgery is required etc Discharge Plan Home Transportation Arrangement Friend or family Referrals Initiated None needed Additional Comment No referrals needed at this time
[2021-11-14] MEDS: ACETAMINOPHEN 325 MG TABLET 650 MG PO (16:03)
[2021-11-15] VITALS (14 sets, daily range): BP systolic 129–143; BP diastolic 77–91; PULSE 76–99; RESP 16–18; TEMP 36.4–37.5; O2SAT 94–97
[2021-11-15] MEDS: SODIUM CHLORIDE 0.9% 1,000 ML 125 ML IV (04:49)
[2021-11-15] MEDS: PIPERACILLIN/TAZO 3.375 GM in SODIUM CHLORIDE 0.9% 100 ML 25 ML IV ×2 (08:47→17:18)
[2021-11-15] MEDS: LETROZOLE 2.5 MG TABLET PO (08:48)
[2021-11-15] MEDS: ENOXAPARIN 40 MG/0.4 ML SYRINGE SUBCUT (08:48)
[2021-11-15] MEDS: ACETAMINOPHEN 325 MG TABLET 650 MG PO ×2 (08:52→15:46)
--- NOTE | 2021-11-15 09:24 | P.PN_ITS ---
Subjective Subjective Interval history: Ms. Pena is a 70W with PMH breast cancer, HTN, previous diverticulitis who presents with abdominal pain. In the ED, workup was done, initial vitals notable for heart rate in 110s. Labs notable for WBC 17.8, Na 132, creatinine 0.86. INR 1.2. UA negative, lactate 2.6. CT abdomen showed diverticulitis of the descending colon with small pericolonic abscess. She was admitted and placed on IV antibiotics with Zosyn 3.375 g IV q.8 hours.? 11/14 This morning she states her pain has improved. 11/15 Patient continues to do better less pain. She is tolerating her clear liquid diet. No nausea vomiting, chest pain Exam Vital Signs (past 8 hours): - 11/15/21 04:00 11/15/21 04:13 11/15/21 08:12 Temperature 97.5 F L 99.4 F Pulse Rate 88 84 Respiratory Rate 16 18 Blood Pressure 143/88 H 140/91 H Pulse Oximetry 94 94 97 11/15/21 08:53 Temperature Pulse Rate Respiratory Rate Blood Pressure Pulse Oximetry 97 Oxygen Delivery Method Room Air Oxygen Flow Rate 0 Narrative Exam Narrative: GEN: NAD HEENT: moist mucous membranes, PERRL NECK: trachea midline, no JVD CV: regular rate and rhythm, no murmurs PULM: clear bilaterally, no wheezes, rhonchi, rales ABD: soft, minimal to mild tenderness to palpation LLQ, bowel sounds present, no rebound/guarding EXT: warm and well perfused with no edema NEURO: awake, alert, oriented, no focal deficits Objective Labs Result Diagrams: 11/14/21 06:44 11/14/21 06:44 [facility] Medical History Breast cancer Bursitis of left hip Cataracts, bilateral (~2009) Cervical somatic dysfunction Chicken pox Colon polyps Diverticular disease (~2014) Essential hypertension Gastric polyps GERD (gastroesophageal reflux disease) Herpes Hyperlipidemia Hypertension (~2014) Iliotibial band syndrome, left leg Measles (~1979) Migraines Mild aortic regurgitation Mumps Ovarian cyst (~2006) Pelvic somatic dysfunction Piriformis syndrome of left side Ruptured tympanic membrane (~2008) Sacral region somatic dysfunction Segmental and somatic dysfunction of abdomen and other regions Brar splint of left lower extremity Somatic dysfunction of lower extremity Verruca warts (infectious) Vision disorder Whooping cough (~195) Surgical History Anesthesia S/P total abdominal hysterectomy and bilateral salpingo-oophorectomy (~2006) Status post biopsy (~1994) Status post cataract extraction of both eyes with insertion of intraocular lens (~2017) Family History Father Hypertension Grandfather Heart disease Grandfather Heart disease Brother No problems noted. Brother No problems noted. Family/Other Stomach cancer Grandmother No problems noted. Mother No problems noted. Social History household members: none occupational status: previously employed Smoking Status: Never smoker alcohol intake: current Assessment & Plan Assessment & Plan narrative: Ms. Pena is a 70W who presents to the hospital with abdominal pain found to have sepsis from acute diverticulitis with complication of pericolonic abscess. 1. Sepsis from -on arrival she was tachycardic, leukocytosis, and elevated lactate 2.6, with end organ dysfunction bilirubin 1.7 - elevated lactate resolved with IV fluid resuscitation -continue IV zosyn 2.? diverticulitis and pericolonic abscess -appreciate surgery consult, no need for surgery currently, recommend IV antibiotics, can reconsider if patient does not improve -blood cultures ordered -clear liquid diet -IV morphine for pain control -continue IV zosyn - CBC, CMP, magnesium in a.m. -consider outpatient colonoscopy 2. Hypertension -resume her candis-inhibitor given sepsis 3. History of breast cancer -continue letrozole COVID-19 COVID-19 status: Negative (11/13/2021) Time Spent With Patient Critical Care time: I spent a total of [] minutes of critical care time on this patient's care today; this time is exclusive of procedural time. Quality VTE Deep Vein Thrombosis/Pulmonary Embolism Present on Admission: No
--- NOTE | 2021-11-15 10:27 | PC.NURSE ---
Patient reports to this COMMUNITY COORDINATOR that My hands feel like sausages and I keep having to loosen my watch. Notified Blake Henry of reported bilateral swelling in both upper extremities.
[2021-11-16] VITALS (14 sets, daily range): BP systolic 122–145; BP diastolic 83–89; PULSE 73–89; RESP 14–18; TEMP 36.4–37.4; O2SAT 95–99
[2021-11-16] MEDS: ACETAMINOPHEN 325 MG TABLET 650 MG PO ×4 (00:26→20:07)
[2021-11-16] MEDS: PIPERACILLIN/TAZO 3.375 GM in SODIUM CHLORIDE 0.9% 100 ML 25 ML IV ×2 (04:45→20:07)
[2021-11-16] MEDS: lisinopriL 5 MG TABLET 10 MG PO (08:20)
[2021-11-16] MEDS: ENOXAPARIN 40 MG/0.4 ML SYRINGE SUBCUT (08:20)
[2021-11-16] MEDS: LETROZOLE 2.5 MG TABLET PO (08:20)
--- NOTE | 2021-11-16 09:02 | PM.PN.1 ---
Subjective Subjective Interval history: Ms. Pena is a 70W with PMH breast cancer, HTN, previous diverticulitis who presents with abdominal pain. In the ED, workup was done, initial vitals notable for heart rate in 110s. Labs notable for WBC 17.8, Na 132, creatinine 0.86. INR 1.2. UA negative, lactate 2.6. CT abdomen showed diverticulitis of the descending colon with small pericolonic abscess. She was admitted and placed on IV antibiotics with Zosyn 3.375 g IV q.8 hours.? 11/14 ?This morning she states her pain has improved. 11/15 Patient continues to do better less pain.? She is tolerating her clear liquid diet.? No nausea vomiting, chest pain 11/16 She continues with pain of the left lower quadrant. It is not increased in nature. Somewhat better than admission. There is no increased pain when eating her clear liquid diet. She has no nausea vomiting. She has loose bowel movements secondary to her antibiotic. She states previously she has been on pro biotics when taking oral antibiotics She states that the edema of her extremities has improved since discontinuing her IVFs yesterday. Exam Vital Signs (past 8 hours): - 11/16/21 01:25 11/16/21 03:31 11/16/21 04:00 Temperature 99.3 F Pulse Rate 89 Respiratory Rate 16 16 Blood Pressure 122/84 Pulse Oximetry 97 97 11/16/21 08:00 11/16/21 08:20 Temperature 97.6 F Pulse Rate 78 89 Respiratory Rate 18 Blood Pressure 136/83 122/84 Pulse Oximetry 96 Oxygen Delivery Method Room Air Oxygen Flow Rate 0 Narrative Exam Narrative: GEN: NAD HEENT: moist mucous membranes, PERRL NECK: trachea midline, no JVD CV: regular rate and rhythm, no murmurs PULM: clear bilaterally, no wheezes, rhonchi, rales ABD: soft, minimal to mild tenderness to palpation LLQ, bowel sounds present, no rebound/guarding EXT: warm and well perfused with trace-1+ edema left arm NEURO: awake, alert, oriented, no focal deficits Objective Labs Result Diagrams: 11/14/21 06:44 11/14/21 06:44 [facility] Medical History Breast cancer Bursitis of left hip Cataracts, bilateral (~2009) Cervical somatic dysfunction Chicken pox Colon polyps Diverticular disease (~2014) Essential hypertension Gastric polyps GERD (gastroesophageal reflux disease) Herpes Hyperlipidemia Hypertension (~2014) Iliotibial band syndrome, left leg Measles (~1979) Migraines Mild aortic regurgitation Mumps Ovarian cyst (~2006) Pelvic somatic dysfunction Piriformis syndrome of left side Ruptured tympanic membrane (~2008) Sacral region somatic dysfunction Segmental and somatic dysfunction of abdomen and other regions Brar splint of left lower extremity Somatic dysfunction of lower extremity Verruca warts (infectious) Vision disorder Whooping cough (~1955) Surgical History Anesthesia S/P total abdominal hysterectomy and bilateral salpingo-oophorectomy (~2006) Status post biopsy (~1994) Status post cataract extraction of both eyes with insertion of intraocular lens (~2017) Family History Father Hypertension Grandfather Heart disease Grandfather Heart disease Brother No problems noted. Brother No problems noted. Family/Other Stomach cancer Grandmother No problems noted. Mother No problems noted. Social History household members: none occupational status: previously employed Smoking Status: Never smoker alcohol intake: current Assessment & Plan Assessment & Plan narrative: Ms. Pena is a 70W who presents to the hospital with abdominal pain found to have sepsis from acute diverticulitis with complication of pericolonic abscess. 1. Sepsis, resolved -on arrival she was tachycardic, leukocytosis, and elevated lactate 2.6, with end organ dysfunction bilirubin 1.7 - elevated lactate resolved with IV fluid resuscitation, no longer with tachycardia and leukocytosis has -continue IV zosyn 2.?Diverticulitis and pericolonic abscess -appreciate surgery consult, no need for surgery currently, recommend IV antibiotics, can reconsider if patient does not improve -blood cultures no growth after 48 hours -advance diet to full liquid diet -dc morphine for pain control - continue oxycodone 5 mg p.o. q.4h as needed pain -continue IV zosyn - CBC, CMP, magnesium in a.m. 3. antibiotics so she had diarrhea - start acidophilus/ bacid 1 p.o. t.i.d. 2. Hypertension - continue lisinopril 10 mg p.o. daily 3. History of breast cancer -continue letrozole COVID-19 COVID-19 status: Negative (11/13/2021) Time Spent With Patient Critical Care time: I spent a total of [] minutes of critical care time on this patient's care today; this time is exclusive of procedural time. Quality VTE Deep Vein Thrombosis/Pulmonary Embolism Present on Admission: No
[2021-11-16 09:59] LABS: Add Manual Diff / Slide Review NO; Basophils Absolute Auto 100 /uL (0-100); Eosinophils Absolute Auto 100 /uL (0-450); Eosinophils Percent Auto 1.5 % (2-4); Hematocrit 36.5 % (36-46); Hemoglobin 12.4 g/dL (12.0-16.0); Lymphocytes Absolute Auto 1200 /uL (1100-4500); Lymphocytes Percent Auto 17.8 % (25-40); Mean Corpuscular Hemoglobin 30.4 PG (26-34); Mean Corpuscular Volume 89.4 fL (80-100); Monocytes Absolute Auto 500 /uL (0-900); Monocytes Percent Auto 6.7 % (3-14); Neutrophils Absolute Auto 4900 /uL (1500-7000); Platelet Count 281 X10^3/uL (150-400); Red Blood Cell Count 4.08 X10^6/uL (4.0-5.2); Red Cell Distribution Width 13.9 % (11.6-14.8); White Blood Cell Count 6.8 X10^3/uL (4.5-11.0)
[2021-11-16 10:09] LABS: Albumin 3.7 g/dL (3.5-5.0); Albumin Globulin Ratio 1.3 (1.0-2.8); Alkaline Phosphatase 55 U/L (38-126); Aspartate Aminotransferase 31 IU/L (14-36); Bilirubin Total 0.5 mg/dL (0.2-1.3); Calcium 9.3 mg/dL (8.4-10.2); Carbon Dioxide 25 mmol/L (22-32); Chloride 104 mmol/L (98-107); Estimated Glomerular Filt Rate > 60.0 mL/min (>60); Globulin 2.9 g/dL (1.7-4.1); Glucose 128 mg/dL (80-110); HEMOLYSIS 24 (0-50); Magnesium 1.8 mg/dL (1.6-2.3); Potassium 3.5 mmol/L (3.4-5.1); Sodium 135 mmol/L (137-145); Total Protein 6.6 g/dL (6.3-8.2)
[2021-11-16 10:11] LABS: BUN Creatinine Ratio 3.2 (6-22); Blood Urea Nitrogen < 2 mg/dL (7-17)
[2021-11-16 10:16] LABS: Alanine Aminotransferase 26 IU/L (<35)
[2021-11-16] MEDS: LACTOBACILLUS ACIDOPHILUS TABLET 1 EACH PO ×2 (14:22→18:55)
--- NOTE | 2021-11-16 19:38 | PC.NURSE ---
Pt AOx4, vital signs stable. Pt takes Tylenol for pain mgmt. Many IV attempts were made on previous shift. PICC line insertion ordered by Dr. Montano. The nurse inserting the PICC line arrived at 16:45, mentioned the need to find a midline because the abx (Zosyn) was not needed for months of time appropriate for the PICC line. She stated that she needed to see if she had a midline in her car because she did not have one available on her in person. She also stated that a PICC line may take 3-4 hrs due to the need to perform an xray for proper placement. At 17:05, the nurse started the procedure to insert the line. She completed the procedure at 18:49. Midline was inserted in the left arm. The night filler nurse, Cecilia, was notified of the delayed Zosyn at report.
[2021-11-16] MEDS: SODIUM CHLORIDE 0.9% FLUSH 10 ML IV (20:07)
[2021-11-17] VITALS (9 sets, daily range): BP systolic 130–147; BP diastolic 75–95; PULSE 75–87; RESP 14–17; TEMP 36.7–37.5; O2SAT 94–97
--- NOTE | 2021-11-17 00:37 | PC.NURSE ---
Addendum entered by Cecilia Dumont R.N. 11/17/21 03:15: Complained of 5/10 pain around an hour earlier and was medicated with Toradol. Concerned with having missed 2 doses of IV ATB related to loss of IV access and being advanced to full liquid diet may be making the pain increase more again. States the pain now is minimally improved but declines offer of either Tylenol or Oxycodone. Did agree to try warm blanket over area. States she did pass some flatus but has had no further stools since around 193 last evening. Encouraged to walk to assist with passing flatus to possibly aid abdominal discomfort. Original Note: Patient is alert and oriented. Breath sounds CTA with RA sat of 97%. HRR. BP elevated at 145/89. Denied nausea. BT present and is continuing to have loose stools. Is tender in LLQ of abdomen and rates severity as 5/10 so was medicated with Tylenol and currently states pain is 2/10. Denied dysuria, frequency or urgency with urination. Is independent with mobility. Refusing SCD's so reminded to ankle wave. Fall assessment score is low.
[2021-11-17] MEDS: KETOROLAC 30 MG/ML VIAL 15 MG IV ×2 (02:28→16:49)
[2021-11-17] MEDS: SODIUM CHLORIDE 0.9% FLUSH 10 ML IV ×4 (02:29→20:02)
[2021-11-17] MEDS: PIPERACILLIN/TAZO 3.375 GM in SODIUM CHLORIDE 0.9% 100 ML 25 ML IV ×3 (04:09→20:01)
[2021-11-17 06:53] LABS: Add Manual Diff / Slide Review NO; Basophils Absolute Auto 100 /uL (0-100); Basophils Percent Auto 1.1 % (0-2); Eosinophils Absolute Auto 200 /uL (0-450); Hematocrit 35.3 % (36-46); Hemoglobin 11.9 g/dL (12.0-16.0); Lymphocytes Absolute Auto 1400 /uL (1100-4500); Lymphocytes Percent Auto 23.4 % (25-40); Mean Corpuscular HGB Conc 33.8 % (30-36); Mean Corpuscular Hemoglobin 30.1 PG (26-34); Mean Corpuscular Volume 88.8 fL (80-100); Monocytes Absolute Auto 500 /uL (0-900); Monocytes Percent Auto 8.3 % (3-14); Neutrophils Absolute Auto 3700 /uL (1500-7000); Neutrophils Percent Auto 64.2 % (50-75); Platelet Count 262 X10^3/uL (150-400); Red Blood Cell Count 3.97 X10^6/uL (4.0-5.2); Red Cell Distribution Width 13.9 % (11.6-14.8); White Blood Cell Count 5.8 X10^3/uL (4.5-11.0)
[2021-11-17 07:02] LABS: Alanine Aminotransferase 20 IU/L (<35); Albumin 3.1 g/dL (3.5-5.0); Albumin Globulin Ratio 1.1 (1.0-2.8); Alkaline Phosphatase 49 U/L (38-126); Aspartate Aminotransferase 27 IU/L (14-36); Bilirubin Total 0.5 mg/dL (0.2-1.3); Calcium 9.1 mg/dL (8.4-10.2); Carbon Dioxide 31 mmol/L (22-32); Chloride 106 mmol/L (98-107); Estimated Glomerular Filt Rate > 60.0 mL/min (>60); Globulin 2.7 g/dL (1.7-4.1); Glucose 96 mg/dL (80-110); HEMOLYSIS 16 (0-50); Magnesium 1.8 mg/dL (1.6-2.3); Potassium 3.4 mmol/L (3.4-5.1); Sodium 137 mmol/L (137-145); Total Protein 5.8 g/dL (6.3-8.2)
[2021-11-17 07:09] LABS: BUN Creatinine Ratio 3.1 (6-22); Blood Urea Nitrogen < 2 mg/dL (7-17)
[2021-11-17] MEDS: ENOXAPARIN 40 MG/0.4 ML SYRINGE SUBCUT (08:16)
[2021-11-17] MEDS: LACTOBACILLUS ACIDOPHILUS TABLET 1 EACH PO ×3 (08:16→16:48)
[2021-11-17] MEDS: lisinopriL 5 MG TABLET 10 MG PO (08:17)
--- NOTE | 2021-11-17 10:27 | DI.CT.S_ITS ---
PROCEDURE: CT ABDOMEN PELVIS W CON INDICATIONS: reevaluate abscess for possible improvement. TECHNIQUE: After the administration of oral and IV contrast, axial sections were acquired from the lung bases to the pubic symphysis. Coronal and sagittal reformats were performed. For radiation dose reduction, the following was used: automated exposure control, adjustment of mA and/or kV according to patient size. COMPARISON: [facility], CT, ABDOMEN/PELVIS WITH CONTRAST, 03/12/2016, 11:41. [facility], CT, CT ABDOMEN PELVIS W CON, 11/13/2021, 11:01. FINDINGS: Image quality: Excellent. Lung bases: There are small bilateral pleural effusions with associated compressive atelectasis. Heart: Heart is normal in size. There is a small hiatal hernia. ABDOMEN: Liver: There is mild focal fatty infiltration in the anterior left hepatic lobe and along the gallbladder fossa. Gallbladder: Within normal limits without gallstones. Biliary ducts: No biliary ductal dilatation. Pancreas: Unremarkable. Spleen: Normal in size. Adrenal Glands: No adrenal nodules. Kidneys and Ureters: No hydronephrosis. Stomach and Bowel: Stomach and small bowel loops are normal in caliber and wall thickness. No evidence of appendicitis. There is colonic diverticulosis with segmental wall thickening and pericolonic fat stranding redemonstrated along the proximal sigmoid colon consistent with diverticulitis. The degree of inflammatory stranding and wall thickening is decreased compared to the prior study. There is minimal adjacent free fluid. An associated loculated thick-walled pericolonic collection containing fluid and gas measures up to 4.0 x 2.5 x 3.9 cm compared to 4.0 x 2.2 x 3.8 cm previously (remeasured). Elsewhere, there is no macroscopic free air. . Ventral Wall: No hernia. Abdominal Nodes: No retroperitoneal or mesenteric adenopathy by size criteria. Vessels: Aorta and inferior vena cava are normal in size. PELVIS: Pelvic Organs: The uterus is surgically absent.. Bladder: Unremarkable. Pelvic Nodes: No enlarged lymph nodes. Miscellaneous: No inguinal hernias are seen. Bones: Visualized osseous structures demonstrate no suspicious focal lesions. IMPRESSION: 1. Left pericolonic diverticular abscess appears similar in size compared to the prior study. 2. Findings of acute diverticulitis in the proximal sigmoid colon redemonstrated with interval decreased inflammatory fat stranding and colonic wall thickening. 3. Small bilateral pleural effusions with compressive atelectasis. Dictated by: Antony Richter M.D. on 11/17/2021 at 11:56 Approved by: Antony Richter M.D. on 11/17/2021 at 12:02
[2021-11-17] MEDS: POTASSIUM CHLORIDE 20 MEQ TAB 40 MEQ PO (12:55)
--- NOTE | 2021-11-17 13:44 | PM.PN.1 ---
Subjective Subjective Date Patient Seen: 11/17/21 Time Patient Seen: 08:00 Interval history: Today she feels improved. She still has tenderness in left side of her abdomen, but it is improving. Exam Vital Signs (past 8 hours): - 11/17/21 08:17 11/17/21 08:53 11/17/21 09:07 Temperature 98.4 F Pulse Rate 87 Respiratory Rate 17 Blood Pressure 147/94 H 142/90 H Pulse Oximetry 96 96 Oxygen Delivery Method Room Air Oxygen Flow Rate 0 Narrative Exam Narrative: GEN: no acute distress ABD: left lower quadrant tender to palpation Objective Labs Result Diagrams: 11/17/21 06:45 11/17/21 06:45 Labs: Laboratory Results - last 24 hr 11/17/21 11/17/21 06:45 06:45 WBC 5.8 RBC 3.97 L Hgb 11.9 L Hct 35.3 L MCV 88.8 MCH 30.1 MCHC 33.8 RDW 13.9 Plt Count 262 Neut % (Auto) 64.2 Lymph % (Auto) 23.4 L [place] % (Auto) 8.3 Eos % (Auto) 3.0 Baso % (Auto) 1.1 Neut # (Auto) 3700 Lymph # (Auto) 1400 [place] # (Auto) 500 Eos # (Auto) 200 Baso # (Auto) 100 Sodium 137 Potassium 3.4 Chloride 106 Carbon Dioxide 31 BUN < 2 L Creatinine 0.65 Estimated GFR > 60.0 BUN/Creatinine Ratio 3.1 L Glucose 96 Calcium 9.1 Magnesium 1.8 Total Bilirubin 0.5 AST 27 ALT 20 Alkaline Phosphatase 49 Total Protein 5.8 L Albumin 3.1 L Globulin 2.7 Albumin/Globulin Ratio 1.1 [facility] Medical History Breast cancer Bursitis of left hip Cataracts, bilateral (~2009) Cervical somatic dysfunction Chicken pox Colon polyps Diverticular disease (~2014) Essential hypertension Gastric polyps GERD (gastroesophageal reflux disease) Herpes Hyperlipidemia Hypertension (~2014) Iliotibial band syndrome, left leg Measles (~1979) Migraines Mild aortic regurgitation Mumps Ovarian cyst (~2006) Pelvic somatic dysfunction Piriformis syndrome of left side Ruptured tympanic membrane (~2008) Sacral region somatic dysfunction Segmental and somatic dysfunction of abdomen and other regions Brar splint of left lower extremity Somatic dysfunction of lower extremity Verruca warts (infectious) Vision disorder Whooping cough (~195) Surgical History Anesthesia S/P total abdominal hysterectomy and bilateral salpingo-oophorectomy (~2006) Status post biopsy (~1994) Status post cataract extraction of both eyes with insertion of intraocular lens (~2018) Family History Father Hypertension Grandfather Heart disease Grandfather Heart disease Brother No problems noted. Brother No problems noted. Family/Other Stomach cancer Grandmother No problems noted. Mother No problems noted. Social History household members: none occupational status: previously employed Smoking Status: Never smoker alcohol intake: current Assessment & Plan Assessment & Plan narrative: Ms. Pena is a 70W who presents to the hospital with abdominal pain found to have sepsis from acute diverticulitis with complication of pericolonic abscess. 1. Sepsis, resolved -on arrival she was tachycardic, leukocytosis, and elevated lactate 2.6, with end organ dysfunction with bilirubin 1.7 -initially elevated lactate resolved with IV fluid resuscitation,? no longer with tachycardia and leukocytosis has improved -continue IV zosyn 2.?Diverticulitis and pericolonic abscess -appreciate surgery consult, no need for surgery currently, recommend IV antibiotics, can reconsider if patient does not improve -blood cultures? no growth after 48 hours -advance diet as abloe -dc morphine for pain control -continue oxycodone 5 mg p.o. q.4h as needed pain -continue IV zosyn -re-evaluation on 11/17 showed continued pain, CT abdomen showed abscess with no improvement, plan for IR percutaneous drainage on 11/18 - start acidophilus/ bacid 1 p.o. t.i.d. 4. Hypertension - continue lisinopril 10 mg p.o. daily 5. History of breast cancer -continue letrozole Time Spent With Patient Critical Care time: I spent a total of [] minutes of critical care time on this patient's care today; this time is exclusive of procedural time. Quality VTE Deep Vein Thrombosis/Pulmonary Embolism Present on Admission: No
--- NOTE | 2021-11-17 15:43 | CM.DPC ---
DCP Cont: Per MD, pt making improvements and has bowel tones, losse stools, still some pain and ambulating some in the halls and full liquids tolerated. Pt may be stable for d/c home later today or tomorrow pending progress. No identified barriers to discharge. Plan: SW to follow closely for plan of home tonight or tomorrow and any further identified needs. MAG Hernandez
[2021-11-17] MEDS: SODIUM CHLORIDE 0.9% 250 ML 21 ML IV (19:59)
--- NOTE | 2021-11-17 21:42 | PC.NURSE ---
Patient is alert and oriented. Breath sounds CTA with RA sat of 97%. HRR. BP trending high and at last vitals check was 145/95. Denied nausea. BT present and abdomen is soft; is passing flatus. Reported 3 stools earlier today, small to moderate and semi-formed/soft. Denies any pain/tenderness in abdomen at time of assessment. Denied dysuria, frequency or urgency with urination. Independent with mobility. Is aware she will be NPO after 0000 for planned percutaneous drainage of colonic abscess in a.m. Patient has some generalized anxiety and has multiple questions about cares. Fall risk score is low.
[2021-11-18] VITALS (13 sets, daily range): BP systolic 129–166; BP diastolic 81–99; PULSE 81–93; RESP 14–18; TEMP 36.2–37.6; O2SAT 95–97
[2021-11-18] MEDS: PIPERACILLIN/TAZO 3.375 GM in SODIUM CHLORIDE 0.9% 100 ML 25 ML IV ×3 (03:58→20:08)
[2021-11-18] MEDS: SODIUM CHLORIDE 0.9% FLUSH 10 ML IV ×4 (03:59→20:09)
[2021-11-18] MEDS: KETOROLAC 30 MG/ML VIAL 15 MG IV (06:23)
[2021-11-18 07:09] LABS: Hematocrit 37.3 % (36-46); Hemoglobin 12.7 g/dL (12.0-16.0); Mean Corpuscular HGB Conc 34.1 % (30-36); Mean Corpuscular Hemoglobin 30.3 PG (26-34); Mean Corpuscular Volume 88.7 fL (80-100); Platelet Count 294 X10^3/uL (150-400); Red Blood Cell Count 4.21 X10^6/uL (4.0-5.2)
[2021-11-18 07:31] LABS: BUN Creatinine Ratio 5.6 (6-22); Blood Urea Nitrogen 4 mg/dL (7-17); Calcium 9.6 mg/dL (8.4-10.2); Carbon Dioxide 28 mmol/L (22-32); Chloride 105 mmol/L (98-107); Estimated Glomerular Filt Rate > 60.0 mL/min (>60); Glucose 97 mg/dL (80-110); HEMOLYSIS < 15 (0-50); Potassium 3.7 mmol/L (3.4-5.1); Sodium 139 mmol/L (137-145)
--- NOTE | 2021-11-18 09:00 | DI.CT.S_ITS ---
PROCEDURE: CT GUIDED FNA Sedation analgesia for 8 minutes. INDICATIONS: aspiration TECHNIQUE: The indications, alternatives, benefits, risks, and possible complications of the procedure were communicated to the patient. Informed written consent from the patient was obtained and placed in the chart. Continuous EKG and hemodynamic monitoring was started by trained personnel. The patient was brought to the CT suite and statistical engineer spiral CT imaging was performed with localization grid. The appropriate site for percutaneous access to the biopsy target was marked, was prepped and draped sterilely, and was infused with local anaesthesia. Under CT guidance, a core biopsy trocar and needle set was advanced to the biopsy target, and specimen(s) were obtained. The trocar and needle were then removed, and the patient was sent for post-procedure monitoring. COMPARISON: [facility], CT, CT ABDOMEN PELVIS W CON, 11/17/2021, 11:29. [facility], CT, CT ABDOMEN PELVIS W CON, 11/13/2021, 11:01. FINDINGS: There is a 1.8 x 3.0 cm abscess in the lower left anterior abdomen, which has slightly decreased in size compared to the last exam dated 11/17/2021 (previously 2.5 x 3.8 [address]). After [address]-guided aspiration, the abscess is no further decreased in size. Approximately 2 cc abscess fluid was aspirated. Biopsy site: Anterior left lower abdomen. Needle: 18 gauge biopsy needle with introducer trocar. Number of passes: 1 Medications: 1% lidocaine for local anaesthesia. IV Fentanyl for conscious sedation for 8 minutes (see nursing record). Complications: None. IMPRESSION: 1. Successful CT-guided abscess aspiration. Dictated by: Teresa Salcido M.D. on 11/18/2021 at 9:34 Approved by: Teresa Salcido M.D. on 11/18/2021 at 9:39
[2021-11-18] MEDS: MIDAZOLAM 2 MG/2 ML VIAL 1 MG IV (09:05)
[2021-11-18] MEDS: lisinopriL 5 MG TABLET 10 MG PO (10:28)
[2021-11-18] MEDS: LETROZOLE 2.5 MG TABLET PO (10:28)
[2021-11-18] MEDS: LACTOBACILLUS ACIDOPHILUS TABLET 1 EACH PO ×3 (10:28→18:00)
--- NOTE | 2021-11-18 10:42 | P.PN_ITS ---
Subjective Subjective Interval history: Patient was evaluated after undergoing IR drainaged of diverticular abscess. No drain was left in place. Patient reports tolerating the procedure fine. She endorses a healthy appetite. She denies any issues with passing gas. Reports feeling overall better but not quite back to baseline. Exam Vital Signs (past 8 hours): - 11/18/21 04:07 11/18/21 04:08 11/18/21 08:39 Temperature 97.1 F L Pulse Rate 85 82 Respiratory Rate 18 16 Blood Pressure 138/90 160/99 H Pulse Oximetry 95 95 97 11/18/21 08:44 11/18/21 08:47 11/18/21 08:57 Temperature 99.7 F H Pulse Rate 83 84 81 Respiratory Rate 14 18 18 Blood Pressure 154/86 H 166/97 H 145/97 H Pulse Oximetry 97 97 96 11/18/21 10:28 Temperature Pulse Rate Respiratory Rate Blood Pressure 145/97 H Pulse Oximetry Oxygen Delivery Method Room Air Oxygen Flow Rate 0 Const Other: Patient laying in bed comfortably upon my entering the room, in no apparent acute distress. Eyes Other: No scleral icterus appreciated. Neck Other: No carotid bruits appreciated. Chest Other: Lungs clear to auscultation bilaterally. Cardio Other: RRR. S1 and S2 heart sounds appreciated. No murmurs appreciated. No peripheral edema noted. GI Other: Soft, non-distended. Tenderness to deep palpation over LLQ. Bowel sounds present. Skin Other: No grossly abnormal lesions noted. Extrem Other: Bilateral radial and dorsalis pedis pulses palpable and equal. Objective Labs Result Diagrams: 11/18/21 06:47 11/18/21 06:47 Labs: Laboratory Results - last 24 hr 11/18/21 11/18/21 06:47 06:47 WBC 5.0 RBC 4.21 Hgb 12.7 Hct 37.3 MCV 88.7 MCH 30.3 MCHC 34.1 RDW 14.0 Plt Count 294 Sodium 139 Potassium 3.7 Chloride 105 Carbon Dioxide 28 BUN 4 L Creatinine 0.72 Estimated GFR > 60.0 BUN/Creatinine Ratio 5.6 L Glucose 97 Calcium 9.6 PFSH Medical History Breast cancer Bursitis of left hip Cataracts, bilateral (~2009) Cervical somatic dysfunction Chicken pox Colon polyps Diverticular disease (~2014) Essential hypertension Gastric polyps GERD (gastroesophageal reflux disease) Herpes Hyperlipidemia Hypertension (~2014) Iliotibial band syndrome, left leg Measles (~1979) Migraines Mild aortic regurgitation Mumps Ovarian cyst (~2006) Pelvic somatic dysfunction Piriformis syndrome of left side Ruptured tympanic membrane (~2008) Sacral region somatic dysfunction Segmental and somatic dysfunction of abdomen and other regions Brar splint of left lower extremity Somatic dysfunction of lower extremity Verruca warts (infectious) Vision disorder Whooping cough (~1955) Surgical History Anesthesia S/P total abdominal hysterectomy and bilateral salpingo-oophorectomy (~2006) Status post biopsy (~1994) Status post cataract extraction of both eyes with insertion of intraocular lens (~2017) Family History Father Hypertension Grandfather Heart disease Grandfather Heart disease Brother No problems noted. Brother No problems noted. Family/Other Stomach cancer Grandmother No problems noted. Mother No problems noted. Social History household members: none occupational status: previously employed Smoking Status: Never smoker alcohol intake: current Assessment & Plan Assessment & Plan narrative: Ms. Pena is a 70W who presents to the hospital with abdominal pain found t o have sepsis from acute diverticulitis with complication of pericolonic abscess. 1. Sepsis, likely secondary to complicated diverticulitis, resolved -on arrival she was tachycardic, leukocytosis, and elevated lactate 2.6, with end organ dysfunction with bilirubin 1.7 -initially elevated lactate resolved with IV fluid resuscitation,?tachycardia and leukocytosis has improved -continue IV Zosyn 2.?Diverticulitis and pericolonic abscess -underwent IR percutaneous drainage of abscess on Nov 18 -blood cultures? no growth after 48 hours -continue IV zosyn -start acidophilus/ bacid 1 p.o. t.i.d. 3. Hypertension -continue lisinopril 10 mg daily 4. History of breast cancer -continue letrozole VTE prophylaxis: Lovenox 40 mg daily Time Spent With Patient Critical Care time: I spent a total of [] minutes of critical care time on this patient's care today; this time is exclusive of procedural time. Quality VTE Deep Vein Thrombosis/Pulmonary Embolism Present on Admission: No MIPS - Admit I confirm the patient?s Advance Care Plan is present, Code status is documented, Surrogate decision maker is in patient?s record [If Yes, STOP here]: Yes
[2021-11-18] MEDS: ENOXAPARIN 40 MG/0.4 ML SYRINGE SUBCUT (11:59)
--- NOTE | 2021-11-18 13:41 | DIET.CONS ---
Dietary Consultation Note Admission Date: 11/13/2021 12:18 Assessment: 70y F admitted for diverticulitis with colonic abscess referred to nutrition per pt request for d/c diet instruction. Pt has diverticulitis flares periodically and generally does well with a 5-7 liquid diet. Pt has some anxiety about what to eat once d/c'd as she does not want to move backwards with progress. Ht: 160.02 cm Wt: 68.946 kg BMI: 26.9 Last BM: 11/17/21 (11/17/21 23:53) MNA: 11 Jermaine Score: 22 Diet: 11/18/21 Lunch General (Regular) Diet Diet Modifications: low fiber Nutrition Percent Meal Consumed 0% 11/17/21 17:39 Percent Meal Consumed 50% 11/17/21 09:07 Percent Meal Consumed 100% 11/16/21 14:00 Labs: RBC 4.21 X10^6/uL (4.0-5.2) 11/18/21 06:47 Hgb 12.7 g/dL (12.0-16.0) 11/18/21 06:47 Hct 37.3 % (36-46) 11/18/21 06:47 Creatinine 0.72 mg/dL (0.52-1.04) 11/18/21 06:47 Lactate 1.2 mmol/L (0.7-2.1) 11/13/21 14:45 Nutrition Diagnosis: nutrition related knowledge deficit r/t diet to support d/c diverticulitis flare aeb pt afraid to eat textured foods, pt has many questions on appropriate nutrition. Interventions: 1. Provided pt Low Fiber MNT handout and education on foods to eat and foods to avoid until sx go away. Provided pt Gradual Increase in Fiber handout with goal of resuming high fiber diet in 3-4 weeks or as tolerated. 2. Recc pt make or purchase bone broth, simmer soft chicken or egg with skin-removed winter squash in broth until soft as restorative food to consume daily for next two weeks in addition to approved foods on list. Electronically Signed by: Annabelle Alonzo 11/18/21 13:41 Clinical Dietitian [address] [id number]
[2021-11-18] MEDS: ACETAMINOPHEN 325 MG TABLET 650 MG PO (18:00)
[2021-11-19] VITALS (8 sets, daily range): BP systolic 134–136; BP diastolic 81–87; PULSE 55–95; RESP 16–20; TEMP 37.4; O2SAT 95–98
[2021-11-19] MEDS: PIPERACILLIN/TAZO 3.375 GM in SODIUM CHLORIDE 0.9% 100 ML 25 ML IV (03:36)
[2021-11-19] MEDS: ACETAMINOPHEN 325 MG TABLET 650 MG PO ×2 (03:37→11:10)
--- NOTE | 2021-11-19 08:45 | PM.PN.1 ---
Subjective Subjective Interval history: The patient reports feeling a lot better this morning. She's tolerating PO intake well, although only a little at a time. She denies having a BM. However, she endorses passing gas. She reports being ready to go home. Exam Vital Signs (past 8 hours): - 11/19/21 01:00 11/19/21 03:37 11/19/21 05:00 Temperature 99.3 F Pulse Rate 87 Respiratory Rate 16 Blood Pressure 136/87 Pulse Oximetry 96 95 96 Oxygen Delivery Method Room Air Oxygen Flow Rate 0 Narrative Exam Narrative: Const Other: Patient laying in bed comfortably and reading upon my entering the room, in no apparent acute distress. Eyes Other: No scleral icterus appreciated. Neck Other: No carotid bruits appreciated. Chest Other: Lungs clear to auscultation bilaterally. Cardio Other: RRR. S1 and S2 heart sounds appreciated. No murmurs appreciated. No peripheral edema noted. GI Other: Soft, non-distended. Tenderness to deep palpation over LLQ. Bowel sounds present. Skin Other: No grossly abnormal lesions noted. Extrem Other: Bilateral radial and dorsalis pedis pulses palpable and equal. Objective Labs Result Diagrams: 11/18/21 06:47 11/18/21 06:47 [facility] Medical History Breast cancer Bursitis of left hip Cataracts, bilateral (~2009) Cervical somatic dysfunction Chicken pox Colon polyps Diverticular disease (~2014) Essential hypertension Gastric polyps GERD (gastroesophageal reflux disease) Herpes Hyperlipidemia Hypertension (~2014) Iliotibial band syndrome, left leg Measles (~1979) Migraines Mild aortic regurgitation Mumps Ovarian cyst (~2006) Pelvic somatic dysfunction Piriformis syndrome of left side Ruptured tympanic membrane (~2008) Sacral region somatic dysfunction Segmental and somatic dysfunction of abdomen and other regions Brar splint of left lower extremity Somatic dysfunction of lower extremity Verruca warts (infectious) Vision disorder Whooping cough (~1955) Surgical History Anesthesia S/P total abdominal hysterectomy and bilateral salpingo-oophorectomy (~2006) Status post biopsy (~1994) Status post cataract extraction of both eyes with insertion of intraocular lens (~2017) Family History Father Hypertension Grandfather Heart disease Grandfather Heart disease Brother No problems noted. Brother No problems noted. Family/Other Stomach cancer Grandmother No problems noted. Mother No problems noted. Social History household members: none occupational status: previously employed Smoking Status: Never smoker alcohol intake: current Assessment & Plan Assessment & Plan narrative: Ms. Pena is a 70W who presents to the hospital with abdominal pain found to have sepsis from acute diverticulitis with complication of pericolonic abscess. 1. Sepsis, likely secondary to complicated diverticulitis, resolved -on arrival she was tachycardic, leukocytosis, and elevated lactate 2.6, with end organ dysfunction with bilirubin 1.7 -initially elevated lactate resolved with IV fluid resuscitation,?tachycardia and leukocytosis has improved -continue IV Zosyn 2.?Diverticulitis and pericolonic abscess -underwent IR percutaneous drainage of abscess on Nov 18 -blood cultures no growth after 48 hours -continue IV Zosyn -start acidophilus/ bacid 1 p.o. t.i.d. 3. Hypertension -continue lisinopril 10 mg daily 4. History of breast cancer -continue letrozole VTE prophylaxis: Lovenox 40 mg daily Time Spent With Patient Critical Care time: I spent a total of [] minutes of critical care time on this patient's care today; this time is exclusive of procedural time. Quality VTE Deep Vein Thrombosis/Pulmonary Embolism Present on Admission: No
[2021-11-19] MEDS: lisinopriL 5 MG TABLET 10 MG PO (08:59)
[2021-11-19] MEDS: LETROZOLE 2.5 MG TABLET PO (08:59)
[2021-11-19] MEDS: LACTOBACILLUS ACIDOPHILUS TABLET 1 EACH PO (09:09)
--- NOTE | 2021-11-19 10:19 | PC.NURSE ---
Pt ambulating in hallway Denies discomfort. in to see. Pt will be discharged this afternoon, Planning the [address] to [place].
--- NOTE | 2021-11-19 13:42 | PM.DS.1 ---
History of Present Illness History of Present Illness Chief complaint: Thinks Diverticulitis Narrative: Ms. Pena is a 70W with PMH breast cancer, HTN, previous diverticulitis who presents with abdominal pain. She notes having abdominal pain start two days ago. She had an old prescription for cipro only, took it twice a day for two days. She did not have any medication for anaerobic infection. She continued to get worse and had severe abdominal pain this morning so presented to the ED. In the ED, workup was done, initial vitals notable for heart rate in 110s. Labs notable for WBC 17.8, Na 132, creatinine 0.86. INR 1.2. UA negative, lactate 2.6. CT abdomen showed diverticulitis of the descending colon with small pericolonic abscess. She was ordered for IV fluids and IV antibiotics and admitted for further treatment. Discharge Providers Provider Date of admission: 11/13/21 12:18 Discharge Date: 11/19/21 Primary care physician: Jeffery Paz DO Discharge provider: Thai To MD Summary Hospital Course Discharge Diagnosis: 1. Sepsis, likely secondary to complicated diverticulitis, resolved 2. Diverticulitis and pericolonic abscess 3. Hypertension 4. History of breast cancer Exam Vital Signs (past 8 hours): - 11/19/21 08:00 11/19/21 08:37 11/19/21 08:59 Pulse Rate 55 L 95 H Respiratory Rate 20 Blood Pressure 134/81 134/81 Pulse Oximetry 96 97 11/19/21 09:00 11/19/21 12:00 Pulse Rate Respiratory Rate Blood Pressure Pulse Oximetry 96 98 Oxygen Delivery Method Room Air Oxygen Flow Rate 0 Const Other: Const Other: Patient laying in bed comfortably and reading upon my entering the room, in no apparent acute distress. Eyes Other: No scleral icterus appreciated. Neck Other: No carotid bruits appreciated. Chest Other: Lungs clear to auscultation bilaterally. Cardio Other: RRR. S1 and S2 heart sounds appreciated. No murmurs appreciated. No peripheral edema noted. GI Other: Soft, non-distended. Tenderness to deep palpation over LLQ. Bowel sounds present. Skin Other: No grossly abnormal lesions noted. Extrem Other: Bilateral radial and dorsalis pedis pulses palpable and equal. Objective Labs Result Diagrams: 11/18/21 06:47 11/18/21 06:47 PFSH Medical History Breast cancer Bursitis of left hip Cataracts, bilateral (~2009) Cervical somatic dysfunction Chicken pox Colon polyps Diverticular disease (~2014) Essential hypertension Gastric polyps GERD (gastroesophageal reflux disease) Herpes Hyperlipidemia Hypertension (~2014) Iliotibial band syndrome, left leg Measles (~1979) Migraines Mild aortic regurgitation Mumps Ovarian cyst (~2006) Pelvic somatic dysfunction Piriformis syndrome of left side Ruptured tympanic membrane (~2008) Sacral region somatic dysfunction Segmental and somatic dysfunction of abdomen and other regions Brar splint of left lower extremity Somatic dysfunction of lower extremity Verruca warts (infectious) Vision disorder Whooping cough (~1955) Surgical History Anesthesia S/P total abdominal hysterectomy and bilateral salpingo-oophorectomy (~2006) Status post biopsy (~1994) Status post cataract extraction of both eyes with insertion of intraocular lens (~2017) Family History Father Hypertension Grandfather Heart disease Grandfather Heart disease Brother No problems noted. Brother No problems noted. Family/Other Stomach cancer Grandmother No problems noted. Mother No problems noted. Social History household members: none occupational status: previously employed Smoking Status: Never smoker alcohol intake: current Discharge Assessment & Plan Assessment and Plan Assessment: Ms. Pena is a 70W who presents to the hospital with abdominal pain found to have sepsis from acute diverticulitis with complication of pericolonic abscess, status post IR-drainage. 1. Sepsis, likely secondary to complicated diverticulitis, resolved -Completed 5 days of IV Zosyn inpatient with good effect-Will discharge home on PO Cipro 500 mg bid and PO Flagyl 500 mg tid for a total of 5 more days of abx therapy 2.?Diverticulitis and pericolonic abscess -Underwent IR-percutaneous drainage of abscess on Nov 18 with approximately 30 cc removal of purulence -Completed 5 days of IV Zosyn inpatient with good effect-Will discharge home on PO Cipro 500 mg bid and PO Flagyl 500 mg tid for a total of 5 more days of abx therapy 3. Hypertension -Continue lisinopril 10 mg daily, and can follow-up with outpatient PCP regarding titration 4. History of breast cancer -Continue letrozole Discharge Plan Discharge Plan Patient Disposition: Home Discharge orders & Medications Prescriptions: New ciprofloxacin HCl 500 mg tablet 500 mg PO BID Qty: 10 0RF metronidazole 500 mg tablet 500 mg PO Q8H Qty: 15 0RF Continued calcium carbonate [Tums E-X] 750 MG tablet,chewable 750 mg PO PRN PRN (Reason: Acid Reflux) Qty: 0 0RF atorvastatin [Lipitor] 40 mg tablet 40 mg PO HS Qty: 90 3RF lisinopril [Zestril] 10 mg tablet 10 mg PO QDAY Qty: 90 3RF letrozole [Femara] 2.5 mg Tablet 2.5 mg PO DAILY Qty: 90 4RF Follow up/Referrals: Jeffery Paz DO [Primary Care Provider] - Discharge Data Primary Care Provider: Jeffery Paz Quality VTE Deep Vein Thrombosis/Pulmonary Embolism Present on Admission: No
== END 2021-11-19 15:00 | disposition home or self-care (01) | DRG 872 ==
LOC: ED 12:04 → AC 12:19
PROVIDERS: Internal Medicine; Admitting Provider Internal Medicine; Emergency Provider Emergency Medicine; PCP Family Medicine; Referring Provider Emergency Medicine; Visit Provider Internal Medicine
DX: A41.9 Sepsis, unspecified organism (principal); K57.20 Diverticulitis of large intestine with perforation and abscess without bleeding; R65.20 Severe sepsis without septic shock; E80.6 Other disorders of bilirubin metabolism; I10 Essential (primary) hypertension; R19.7 Diarrhea, unspecified; E78.5 Hyperlipidemia, unspecified; Z20.822 Contact with and (suspected) exposure to COVID-19; Z85.3 Personal history of malignant neoplasm of breast
CPT/HCPCS: 10009; 36415; 36573; 74177; 80048; 80053; 81003; 83605; 83690; 83735; 85025; 85027; 85610; 85730; 87040; 87070; 87075; 87077; 87186; 87205; 87635; 94760; 96360; 99284; C9803; J1642; J1650; J1885; J2250; J2270; J2543; Q9967

== ENCOUNTER → 2022-01-10 14:13 | Outpatient (CLI) | payer MEDICARE, OTHER, SELFPAY ==
[2021-12-25 11:23] VITALS: BMI 26.9
== END ==
PROVIDERS: PCP Family Medicine; Visit Provider Physician Assistant
DX: N39.0 Urinary tract infection, site not specified (principal)
CPT/HCPCS: 87086

== ENCOUNTER 2022-02-24 10:18 | Day surgery (SDC) | payer MEDICARE, OTHER, SELFPAY ==
[2021-12-25 11:23] VITALS: BMI 26.9
--- NOTE | 2022-02-24 | PATH_ITS ---
[facility] Accession Number: [id number] . 01 Material submitted: . PART A: gastrointestinal site - GASTRIC BIOPSY PART B: colon - SIGMOID POLYP . 02 Diagnosis: A. Gastric Biopsy: Gastric antral and body-type mucosa with mild chronic inflammation. Negative for Helicobacter organisms by immunohistochemistry. Negative for intestinal metaplasia. Negative for dysplasia or malignancy. . B. Sigmoid Polyp: Superficial portion of colorectal mucosa with a benign lymphoid aggregate and focal hyperplastic mucosal change. Additional levels through the block are noncontributory. MRV 02/27/2022 1351 Local . 02 Electronically signed: . Tracee Ward MD, Pathologist NPI- [id number] . 01 Gross description: . Part A: GASTRIC BIOPSY: Received in formalin is 1 fragment(s) of boyle, soft tissue measuring 0.3 x 0.1 x 0.1 cm submitted entirely in 1 cassette(s) Part B: SIGMOID POLYP: Received in formalin is 1 fragment(s) of boyle, soft tissue measuring 0.3 x 0.2 x 0.2 cm submitted entirely in 1 cassette(s) /CPE 02/25/2022 0744 Local . 02 Microscopic: . A. An immunohistochemical stain is performed to evaluate for Helicobacter organisms and is negative. The control stain shows appropriate reactivity. . * This test was developed and its performance characteristics determined by [employer]. It has not been cleared or approved by the U.S. Food and Drug Administration. The FDA has determined that such clearance or approval is not necessary. This test is used for clinical purposes. It should not be regarded as investigational or for research. . 02 Pathologist provided ICD-10: K57.92, Z80.0, K63.5 . 02 CPT . 827319, 690107, [id number] Specimen Comment: A courtesy copy of this report has been sent to [phone] Performed at: 01 [facility] [address] [place] [address], [place], [place] [id number] MD Antony Vee MD Phone: [phone] Performed at: 02 [facility] [address] [place], [place] [id number] MD Pilar Erickson MD Phone: [phone]
[2022-02-24 10:55] VITALS: BP 136/95; PULSE 97; RESP 15; TEMP 37.2; O2SAT 97; BMI 26.2
[2022-02-24 11:03] LABS: COVID19 -Nasal RAPID Negative (Negative)
[2022-02-24] MEDS: LACTATED RINGERS 1,000 ML 200 ML IV (11:17)
--- NOTE | 2022-02-24 11:33 | PM.HP.1 ---
History of Present Illness History of Present Illness Date Patient Seen: 02/24/22 Chief complaint: DX COLONOSCOPY & EGD Narrative: 71-year-old woman with a history of complicated diverticulitis with abscess here for colonoscopy and esophagoduodenoscopy. She has a strong family history of multiple family members developing gastric cancer and she is here for routine esophagoduodenoscopy as well. She has no abdominal pain nausea vomiting hematemesis or hematochezia. Patient History Medical History Breast cancer Bursitis of left hip Cataracts, bilateral (~2009) Cervical somatic dysfunction Chicken pox Colon polyps Diverticular disease (~2014) Essential hypertension Gastric polyps GERD (gastroesophageal reflux disease) Herpes Hyperlipidemia Hypertension (~2014) Iliotibial band syndrome, left leg Measles (~1979) Migraines Mild aortic regurgitation Mumps Oral candidiasis Ovarian cyst (~2006) Pain, arm, left Pelvic somatic dysfunction Piriformis syndrome of left side Ruptured tympanic membrane (~2008) Sacral region somatic dysfunction Segmental and somatic dysfunction of abdomen and other regions Brar splint of left lower extremity Somatic dysfunction of lower extremity Tachycardia Verruca warts (infectious) Vision disorder Whooping cough (~1955) Surgical History Anesthesia S/P total abdominal hysterectomy and bilateral salpingo-oophorectomy (~2006) Status post biopsy (~1994) Status post cataract extraction of both eyes with insertion of intraocular lens (~2017) Family & Social History Family History Father Hypertension Grandfather Heart disease Grandfather Heart disease Brother No problems noted. Brother No problems noted. Family/Other Stomach cancer Grandmother No problems noted. Mother No problems noted. Social History: household members friend(s),none Tobacco & Substance use: Smoking Status Never smoker alcohol intake current alcohol intake frequency a few times a week Substance Use Type does not use Meds Home Medications and Allergies Home Medications Medication Instructions Recorded Confirmed Type calcium carbonate 300 mg (750 mg) 750 mg PO PRN PRN #0 12/28/17 02/24/22 History chewable tablet (Tums E-X) letrozole 2.5 mg tablet (Femara) 2.5 mg PO DAILY #90 tab 04/09/21 02/24/22 Rx atorvastatin 40 mg tablet (Lipitor) 40 mg PO HS #90 tab 09/02/21 02/24/22 Rx lisinopril 10 mg tablet (Zestril) 10 mg PO QDAY #90 tab 09/02/21 02/24/22 Rx valacyclovir 500 mg tablet 500 mg PO BID #6 tab 02/24/22 Rx (Valtrex) Allergies Allergy/AdvReac Type Severity Reaction Status Date / Time amoxicillin [AMOXICILLIN] AdvReac Mild VOMITING Verified 02/24/22 10:51 codeine [CODEINE] AdvReac Mild GI Verified 02/24/22 10:51 INTOLERANCE erythromycin base AdvReac Mild GI Verified 02/24/22 10:51 [ERYTHROMYCIN BASE] INTOLERANCE Exam Vital Signs (past 8 hours): - 02/24/22 10:55 Temperature 98.9 F Pulse Rate 97 H Respiratory Rate 15 Blood Pressure 136/95 H Pulse Oximetry 97 Oxygen Delivery Method Room Air Narrative Exam Narrative: General adult woman alert oriented no acute distress Chest nonlabored respirations Extremities warm well perfused Objective Labs Labs: Laboratory Results - last 24 hr 02/24/22 10:37 SARS-CoV-2 (PCR) Negative Assessment & Plan Assessment & Plan narrative: 71-year-old woman history of complicated diverticulitis and a family history of gastric cancer here for colonoscopy and esophagoduodenoscopy. Again technical details of the procedures were discussed patient. Procedural risks including bleeding, missed diagnosis, anesthetic complications, intestinal perforation were discussed. Her questions have been answered she is in agreement with this plan Time Spent With Patient Critical Care time: I spent a total of [] minutes of critical care time on this patient's care today; this time is exclusive of procedural time.
[2022-02-24] MEDS: LIDOCAINE 4% SOLN 50 ML 20 ML TOP (11:42)
[2022-02-24] MEDS: MIDAZOLAM 5 MG/5 ML VIAL IV (11:43)
[2022-02-24] MEDS: fentaNYL 250 MCG/5 ML INJ 150 MCG IV (11:43)
--- NOTE | 2022-02-24 12:03 | PM.OP.EC ---
Operative Date/Time/Diagnoses Date of procedure: 02/24/22 Time of procedure: 12:04 Pre-op diagnosis: History of diverticulitis. Family history of gastric cancer Post-op diagnosis: same Procedure & Clinicians Study performed: Esophagoduodenoscopy and colonoscopy Same procedure as scheduled: Yes Indications: Family history of gastric cancer, history diverticulitis with abscess here for follow-up colonoscopy Procedure Notes Procedure in detail: Medications: Conscious sedation using 5mg IV midazolam and 150mcg IV of fentanyl The history and physical was performed/updated and the patient is ASA class is 2 . The procedure was discussed in detail with the patient. Potential risks complications including infection, bleeding, missed diagnosis, perforation, need for surgery, and were explained. Their questions were answered and informed consent was obtained. Patient placed in left lateral decubitus position. Time out was performed. Procedural sedation was administered with Versed and Fentanyl. A bite block was placed. the scope was inserted into the mouth and advanced through the esophagus and into the stomach. The pylorus was intubated and the duodenum was normal to the 2nd portion. The scope was retroflexed within the stomach and there was a small hiatal hernia. Very mild gastritis no ulcers. Biopsy of the stomach was performed with forceps. The scope was withdrawn into the esophagus the Z line was seen at 35 cm from the incisions. There was no Fang's esophagitis or masses or strictures. Stomach was desufflated and scope removed. Patient tolerated procedure well. Examination began with a thorough inspection of the perianal area there was no evidence of fissures, fistulae, external hemorrhoids or cutaneous malignancy. The colonoscopy scope was then placed into the anal canal and was advanced to the cecum, which was identified by the ileocecal valve, the appendiceal orifice and the confluence of the taenia. The scope was then slowly withdrawn examining colon thoroughly in all directions, irrigating it of any residual stool. FINDINGS 1. Sigmoid diverticulosis. No stricture. 2. 5 mm distal sigmoid/rectal polyp removed with biopsy forceps The patient tolerated the procedure well. They will be discharged once criteria are met. The prep was of good/excellent quality. The withdrawl time was 6 minutes. The sedation time was 20 minutes. Specimen(s): other (Rectal polyp) Complications: none Impression: Colonic polyp Post-procedure Recommendations: Colonscopy in 10 years and High fiber diet Disposition: same day surgery
[2022-02-24 12:08] VITALS: BP 135/84; PULSE 91; RESP 16; TEMP 36.6; O2SAT 96
[2022-02-24 12:13] VITALS: BP 122/91; PULSE 85; RESP 18; O2SAT 96
[2022-02-24 12:18] VITALS: BP 127/82; PULSE 72; RESP 18; O2SAT 99
[2022-02-24 12:24] VITALS: BP 126/84; PULSE 79; RESP 16; TEMP 36.5; O2SAT 97
--- NOTE | 2022-02-24 12:41 | SUR.PHASEII ---
Pt given discharge intructions and pt state she understands discharge instructions. Pt to be discharged with her partner. Dr. Santiago was asked about her surgery she thought she would have surgery assured her she would not. And Dr. Santiago confirmed this with RN. Pt to be discharged with her partner.
== END 2022-02-24 12:58 | disposition home or self-care (01) ==
PROVIDERS: PCP Family Medicine; Referring Provider Surgery; Visit Provider Surgery
PROC: 0DJ08ZZ Inspection of Upper Intestinal Tract, Via Natural or Artificial Opening Endoscopic (ICD-10-PCS; CPT 43235; principal; 2022-02-24 11:30)
PROC: 0DJD8ZZ Inspection of Lower Intestinal Tract, Via Natural or Artificial Opening Endoscopic (ICD-10-PCS; CPT 45378; 2022-02-24 11:30)
DX: Z09 Encounter for follow-up examination after completed treatment for conditions other than malignant neoplasm (principal); Z87.19 Personal history of other diseases of the digestive system; Z80.0 Family history of malignant neoplasm of digestive organs; K29.70 Gastritis, unspecified, without bleeding; K44.9 Diaphragmatic hernia without obstruction or gangrene; K57.30 Diverticulosis of large intestine without perforation or abscess without bleeding; K29.50 Unspecified chronic gastritis without bleeding
CPT/HCPCS: 45380; 43239; 87635; 99152; C9803; J2250; J3010

== ENCOUNTER → 2022-06-26 10:52 | Outpatient (CLI) | payer MEDICARE, OTHER, SELFPAY ==
[2021-12-25 11:23] VITALS: BMI 26.9
--- NOTE | 2022-06-26 | DI.MG.S_ITS ---
BILATERAL DIGITAL SCREENING MAMMOGRAM 3D/2D WITH CAD: 06/26/2022 CLINICAL: Routine screening. Personal history of right breast cancer. Comparison is made to exams dated: 06/25/2021 mammogram - [facility], 05/21/2020 mammogram, and 05/16/2019 mammogram - [facility]. Both breasts are heterogeneously dense, which may obscure small masses (category c / 51-75% glandular tissue). Current study was also evaluated with a Computer Aided Detection (CAD) system. There are benign calcifications in both breasts. There also are benign post operative findings in the right breast. No significant masses, calcifications, or other findings are seen in either breast. There has been no significant interval change. IMPRESSION: BENIGN There is no mammographic evidence of malignancy. A 1 year screening mammogram is recommended. This exam was interpreted at Station ID: [id number]. NOTE: For mammograms, a report in lay terms will be sent to the patient. Approximately 15% of breast malignancies will not be visualized mammographically. In the management of a palpable breast mass, a negative mammogram must not discourage biopsy of a clinically suspicious lesion. Electronically Signed By: Avril olsen/siri:06/26/2022 13:12:34 copy to: MARLENY COLMENARES copy to: HERNESTO VILCHIS letter sent: Normal Exam ACR BI-RADS Category 2: Benign Finding(s) 3342F
== END ==
PROVIDERS: PCP Family Medicine; Referring Provider Internal Medicine Medical Oncology; Visit Provider Internal Medicine Medical Oncology
DX: Z12.31 Encounter for screening mammogram for malignant neoplasm of breast (principal); Z85.3 Personal history of malignant neoplasm of breast
CPT/HCPCS: 77063; 77067

== ENCOUNTER → 2022-08-26 08:33 | Outpatient (CLI) | payer MEDICARE, OTHER, SELFPAY ==
[2021-12-25 11:23] VITALS: BMI 26.9
[2022-08-26 09:56] LABS: Add Manual Diff / Slide Review NO; Basophils Absolute Auto 0 /uL (0-100); Basophils Percent Auto 0.9 % (0-2); Eosinophils Absolute Auto 100 /uL (0-450); Eosinophils Percent Auto 1.6 % (2-4); Hematocrit 44.6 % (36-46); Hemoglobin 15.1 g/dL (12.0-16.0); Lymphocytes Absolute Auto 1600 /uL (1100-4500); Lymphocytes Percent Auto 32.4 % (25-40); Mean Corpuscular HGB Conc 33.9 % (30-36); Mean Corpuscular Hemoglobin 30.4 PG (26-34); Mean Corpuscular Volume 89.7 fL (80-100); Monocytes Absolute Auto 300 /uL (0-900); Monocytes Percent Auto 6.4 % (3-14); Neutrophils Absolute Auto 2900 /uL (1500-7000); Neutrophils Percent Auto 58.7 % (50-75); Platelet Count 267 X10^3/uL (150-400); Red Blood Cell Count 4.97 X10^6/uL (4.0-5.2); Red Cell Distribution Width 14.2 % (11.6-14.8); White Blood Cell Count 4.9 X10^3/uL (4.5-11.0)
[2022-08-26 10:33] LABS: Alanine Aminotransferase 26 IU/L (<35); Albumin 4.6 g/dL (3.5-5.0); Albumin Globulin Ratio 1.6 (1.0-2.8); Alkaline Phosphatase 87 U/L (38-126); Aspartate Aminotransferase 26 IU/L (14-36); BUN Creatinine Ratio 9.9 (6-22); Bilirubin Total 0.7 mg/dL (0.2-1.3); Blood Urea Nitrogen 8 mg/dL (7-17); Calcium 10.4 mg/dL (8.4-10.2); Carbon Dioxide 28 mmol/L (22-32); Chloride 100 mmol/L (98-107); Cholesterol 224 mg/dL (140-199); Estimated Glomerular Filt Rate > 60 mL/min (>60); Globulin 2.9 g/dL (1.7-4.1); Glucose 92 mg/dL (80-110); HDL Cholesterol 86 mg/dL (40-60); HEMOLYSIS < 15 (0-50); LDL Cholesterol Calculated 118 mg/dL (<100); Potassium 5.3 mmol/L (3.4-5.1); Sodium 136 mmol/L (137-145); Total Protein 7.5 g/dL (6.3-8.2); Triglycerides 99 mg/dL (35-150)
== END ==
PROVIDERS: PCP Family Medicine; Referring Provider Family Medicine; Visit Provider Family Medicine
DX: E78.2 Mixed hyperlipidemia (principal); I10 Essential (primary) hypertension
CPT/HCPCS: 36415; 80053; 80061; 85025

== ENCOUNTER → 2023-08-03 08:49 | Outpatient (CLI) | payer MEDICARE, OTHER, SELFPAY ==
[2021-12-25 11:23] VITALS: BMI 26.9
[2023-08-03 09:56] LABS: Add Manual Diff / Slide Review NO; Basophils Absolute Auto 100 /uL (0-100); Eosinophils Absolute Auto 100 /uL (0-450); Eosinophils Percent Auto 1.3 % (2-4); Hematocrit 43.8 % (36-46); Hemoglobin 14.7 g/dL (12.0-16.0); Lymphocytes Absolute Auto 1700 /uL (1100-4500); Lymphocytes Percent Auto 27.6 % (25-40); Mean Corpuscular HGB Conc 33.6 % (30-36); Mean Corpuscular Hemoglobin 30.6 PG (26-34); Mean Corpuscular Volume 91.2 fL (80-100); Monocytes Absolute Auto 400 /uL (0-900); Monocytes Percent Auto 6.1 % (3-14); Neutrophils Absolute Auto 3900 /uL (1500-7000); Platelet Count 276 X10^3/uL (150-400); Red Cell Distribution Width 14.9 % (11.6-14.8); White Blood Cell Count 6.2 X10^3/uL (4.5-11.0)
[2023-08-03 10:26] LABS: Alanine Aminotransferase 24 IU/L (<35); Albumin 4.3 g/dL (3.5-5.0); Albumin Globulin Ratio 1.7 (1.0-2.8); Alkaline Phosphatase 78 U/L (38-126); Aspartate Aminotransferase 24 IU/L (14-36); BUN Creatinine Ratio 16.4 (6-22); Bilirubin Total 0.8 mg/dL (0.2-1.3); Blood Urea Nitrogen 12 mg/dL (7-17); Calcium 10.7 mg/dL (8.4-10.2); Carbon Dioxide 24 mmol/L (22-32); Chloride 103 mmol/L (98-107); Estimated Glomerular Filt Rate > 60 mL/min (>60); Globulin 2.6 g/dL (1.7-4.1); Glucose 95 mg/dL (80-110); HEMOLYSIS < 15 (0-50); Potassium 4.2 mmol/L (3.4-5.1); Sodium 134 mmol/L (137-145); Total Protein 6.9 g/dL (6.3-8.2)
[2023-08-03 10:57] LABS: TSH w/ Reflex to FT4 1.25 uIU/mL (0.47-4.68)
--- NOTE | 2023-08-03 11:15 | DI.MG.S_ITS ---
BILATERAL DIGITAL SCREENING MAMMOGRAM 3D/2D WITH CAD: 08/03/2023 CLINICAL: Routine screening. Personal history of right breast cancer. Comparison is made to exams dated: 06/26/2022 mammogram - [facility], 06/25/2021 mammogram - [facility], and 05/21/2020 mammogram - [facility]. Both breasts are heterogeneously dense, which may obscure small masses (category c / 51-75% glandular tissue). Current study was also evaluated with a Computer Aided Detection (CAD) system. There are benign calcifications in both breasts. There also are benign post operative findings in the right breast. No significant masses, calcifications, or other findings are seen in either breast. There has been no significant interval change. IMPRESSION: BENIGN There is no mammographic evidence of malignancy. A 1 year screening mammogram is recommended. This exam was interpreted at Station ID: [id number]. NOTE: For mammograms, a report in lay terms will be sent to the patient. Approximately 15% of breast malignancies will not be visualized mammographically. In the management of a palpable breast mass, a negative mammogram must not discourage biopsy of a clinically suspicious lesion. Electronically Signed By: Avril olsen/siri:08/03/2023 16:32:30 copy to: MARLENY COLMENARES copy to: HERNESTO VILCHIS letter sent: Normal Exam ACR BI-RADS Category 2: Benign Finding(s) 3342F
[2023-08-05 08:13] LABS: Parathyroid Hormone Int 21 pg/mL (15-65)
== END ==
PROVIDERS: PCP Family Medicine; Referring Provider Family Medicine; Visit Provider Family Medicine
DX: Z12.31 Encounter for screening mammogram for malignant neoplasm of breast (principal); I10 Essential (primary) hypertension; C50.919 Malignant neoplasm of unspecified site of unspecified female breast; I35.1 Nonrheumatic aortic (valve) insufficiency; Z17.0 Estrogen receptor positive status [ER+]; E83.52 Hypercalcemia; E78.2 Mixed hyperlipidemia; R00.0 Tachycardia, unspecified; Z85.3 Personal history of malignant neoplasm of breast
CPT/HCPCS: 36415; 77063; 77067; 80053; 83970; 84443; 85025

== ENCOUNTER → 2023-09-16 11:49 | Outpatient (CLI) | payer MEDICARE, OTHER, SELFPAY ==
[2021-12-25 11:23] VITALS: BMI 26.9
[2023-09-16 13:10] LABS: Cholesterol 217 mg/dL (140-199); HDL Cholesterol 86 mg/dL (40-60); LDL Cholesterol Calculated 116 mg/dL (<100); Triglycerides 75 mg/dL (35-150)
== END ==
PROVIDERS: PCP Family Medicine; Referring Provider Family Medicine; Visit Provider Family Medicine
DX: I10 Essential (primary) hypertension (principal); I35.1 Nonrheumatic aortic (valve) insufficiency; C50.919 Malignant neoplasm of unspecified site of unspecified female breast; Z17.0 Estrogen receptor positive status [ER+]; E83.52 Hypercalcemia; E78.2 Mixed hyperlipidemia
CPT/HCPCS: 36415; 80061

== ENCOUNTER → 2023-12-09 11:00 | Outpatient (CLI) | payer MEDICARE, OTHER, SELFPAY ==
[2021-12-25 11:23] VITALS: BMI 26.9
--- NOTE | 2023-12-09 | DI.RAD.S_ITS ---
Bone Density Report Name: MARYANNE SHINE Age: 73 Sex: Female Ethnicity: White Date of : 1950 Indication: postmenopausal; screening for osteoporosis; Referring Provider: MARCOS MARIE Study: Bone densitometry was performed. Exam Date: December 09, 2023 Accession number: [id number] Bone Density: Region BMD T-score Z-score Classification AP Spine(L1-L4) 1.048 0.0 2.3 Normal Femoral Neck (Left) 0.676 -1.6 0.5 Osteopenia Total Hip (Left) 0.792 -1.2 0.5 Osteopenia Femoral Neck (Right) 0.764 -0.8 1.3 Normal Total Hip (Right) 0.856 -0.7 1.0 Normal Total Hip Mean 0.824 -1.0 0.8 Normal Total Forearm (Left) 0.529 -0.9 1.4 Normal 1/3 Forearm (Left) 0.644 -0.8 1.6 Normal UD Forearm (Left) 0.406 -0.6 1.1 Normal World Health Organization criteria for BMD impression classify patients as: Normal (T-score at or above -1.0), Osteopenia (T-score between -1.0 and -2.5), or Osteoporosis (T-score at or below -2.5). 10-year Fracture Risk(1): Major Osteoporotic Fracture 11% Hip Fracture 2.0% Reported Risk Factors: [place] (), Neck BMD=0.676, BMI=28.3 (1) FRAX(R) Version 3.08. Fracture probability calculated for an untreated patient. Fracture probability may be lower if the patient has received treatment. Previous Exams: -- Region Exam Age BMD T-score BMD Change BMD Change Date g/cm2 vs Baseline vs Previous -- AP Spine (L1-L4) 12/09/2023 73 1.048 0.0 -0.118 (-10.1%)# -0.120 (-10.2%)# 05/22/2021 70 1.167 1.1 0.002 (0.2%) -0.017 (-1.4%) 10/19/2018 67 1.184 1.2 0.019 (1.6%) -0.012 (-1.0%) 08/09/2017 66 1.196 1.4 0.030 (2.6%)* 0.030 (2.6%)* 03/21/2008 57 1.165 1.1 Total Hip(Left) 12/09/2023 73 0.792 -1.2 -0.251 (-24.1%)# -0.048 (-5.7%)# 05/22/2021 70 0.839 -0.8 -0.204 (-19.5%)* -0.052 (-5.9%)* 10/19/2018 67 0.891 -0.4 -0.151 (-14.5%)* -0.050 (-5.3%)* 08/09/2017 66 0.941 0.0 -0.102 (-9.7%)* -0.102 (-9.7%)* 03/21/2008 57 1.043 0.8 Total Hip(Right) 12/09/2023 73 0.856 -0.7 -0.227 (-21.0%)# -0.048 (-5.3%)# 05/22/2021 70 0.904 -0.3 -0.179 (-16.6%)* -0.035 (-3.8%)* 10/19/2018 67 0.939 0.0 -0.144 (-13.3%)* -0.063 (-6.3%)* 08/09/2017 66 1.003 0.5 -0.081 (-7.5%)* -0.081 (-7.5%)* 03/21/2008 57 1.083 1.2 -- *Denotes significance at 95% confidence level, LSC for AP Spine = 0.022 g/cm2, LSC for Total Hip = 0.027 g/cm2 # Denotes dissimilar scan types or analysis methods Impression: The patient has low bone mass, based on the Left Femoral Neck T-score. The patient has an estimated ten-year risk of hip fracture of 2% and an estimated ten-year risk of major fracture of 11%, based on the WHO FRAX algorithm. No significant bone loss was observed. Discussion: BONE DENSITY IS LOW AT ONE OR MORE SKELETAL SITES. This patient's lowest T-score is low at one or more skeletal sites. It meets the World Health Organization's (WHO) criteria for low bone mass (T-score between -1.0 and -2.5). The patient's 10-year risk of fracture as calculated by FRAX is less than the threshold where pharmacological therapy is recommended by the National Osteoporosis Foundation (NOF). However, all treatment decisions require clinical judgment and consideration of individual patient factors, including patient preferences, comorbidities, previous drug use, risk factors not captured in the FRAX model (e.g., frailty, falls, vitamin D deficiency, increased bone turnover, interval significant decline in bone density) and possible under or overestimation of fracture risk by FRAX. The patient should follow a healthful lifestyle (good nutrition with adequate calcium and vitamin D, and appropriate weight-bearing exercise). Follow-Up: Consider repeating this study in 2 to 3 years to reassess this patient's status, or sooner if there is some new clinical indication. Reported by: SHIVA YOON M.D. on 12/09/2023 11:39:00 AM.
== END ==
PROVIDERS: PCP Family Medicine; Referring Provider Internal Medicine Hematology & Oncology; Visit Provider Internal Medicine Hematology & Oncology
DX: Z79.811 Long term (current) use of aromatase inhibitors (principal); C50.411 Malignant neoplasm of upper-outer quadrant of right female breast; Z17.0 Estrogen receptor positive status [ER+]; M85.852 Other specified disorders of bone density and structure, left thigh; Z78.0 Asymptomatic menopausal state
CPT/HCPCS: 77080; 77081

== ENCOUNTER → 2024-08-08 09:08 | Outpatient (CLI) | payer MEDICARE, OTHER, SELFPAY ==
[2021-12-25 11:23] VITALS: BMI 26.9
[2024-08-08 09:51] LABS: Add Manual Diff / Slide Review NO; Basophils Absolute Auto 0 /uL (0-100); Basophils Percent Auto 0.9 % (0-2); Eosinophils Absolute Auto 100 /uL (0-450); Eosinophils Percent Auto 1.6 % (2-4); Hematocrit 46.2 % (36-46); Hemoglobin 15.6 g/dL (12.0-16.0); Lymphocytes Absolute Auto 1500 /uL (1100-4500); Lymphocytes Percent Auto 27.9 % (25-40); Mean Corpuscular HGB Conc 33.7 % (30-36); Mean Corpuscular Hemoglobin 30.7 PG (26-34); Mean Corpuscular Volume 91.1 fL (80-100); Monocytes Absolute Auto 400 /uL (0-900); Monocytes Percent Auto 7.4 % (3-14); Neutrophils Absolute Auto 3400 /uL (1500-7000); Neutrophils Percent Auto 62.2 % (50-75); Platelet Count 295 X10^3/uL (150-400); Red Blood Cell Count 5.07 X10^6/uL (4.0-5.2); Red Cell Distribution Width 14.7 % (11.6-14.8); White Blood Cell Count 5.5 X10^3/uL (4.5-11.0)
[2024-08-08 10:24] LABS: Alanine Aminotransferase 25 IU/L (<35); Albumin 4.6 g/dL (3.5-5.0); Albumin Globulin Ratio 1.8 (1.0-2.8); Alkaline Phosphatase 81 U/L (38-126); Aspartate Aminotransferase 28 IU/L (14-36); BUN Creatinine Ratio 20.5 (6-22); Bilirubin Total 0.9 mg/dL (0.2-1.3); Blood Urea Nitrogen 16 mg/dL (7-17); Calcium 10.2 mg/dL (8.4-10.2); Carbon Dioxide 23 mmol/L (22-32); Chloride 100 mmol/L (98-107); Cholesterol 214 mg/dL (140-199); Estimated Glomerular Filt Rate > 60 mL/min (>60); Globulin 2.5 g/dL (1.7-4.1); Glucose 91 mg/dL (80-110); HDL Cholesterol 85 mg/dL (40-60); HEMOLYSIS < 15 (0-50); LDL Cholesterol Calculated 115 mg/dL (<100); Potassium 4.1 mmol/L (3.4-5.1); Sodium 134 mmol/L (137-145); Total Protein 7.1 g/dL (6.3-8.2); Triglycerides 69 mg/dL (35-150)
[2024-08-08 10:58] LABS: TSH w/ Reflex to FT4 1.01 uIU/mL (0.47-4.68)
--- NOTE | 2024-08-08 11:22 | DI.MG.S_ITS ---
BILATERAL DIGITAL SCREENING MAMMOGRAM 3D/2D WITH CAD POST LUMPECTOMY: 08/08/2024 CLINICAL: Routine screening. Personal history of right breast cancer. Comparison is made to exams dated: 06/26/2022 mammogram, 08/03/2023 mammogram - [facility], and 06/25/2021 mammogram - [facility]. The breasts are heterogeneously dense, which may obscure small masses (category c / 51-75% glandular tissue). Current study was also evaluated with a Computer Aided Detection (CAD) system. There are benign calcifications in both breasts. There also are benign post operative findings in the right breast. No significant masses, calcifications, or other findings are seen in either breast. There has been no significant interval change. IMPRESSION: BENIGN There is no mammographic evidence of malignancy. A 1 year screening mammogram is recommended. This exam was interpreted at Station ID: [id number]. NOTE: For mammograms, a report in lay terms will be sent to the patient. Approximately 15% of breast malignancies will not be visualized mammographically. In the management of a palpable breast mass, a negative mammogram must not discourage biopsy of a clinically suspicious lesion. Electronically Signed By: Jessa Ahmadi M.D., Ph.D. mireya/siri:08/09/2024 01:12:34 copy to: BREEZY GARZA letter sent: Normal Exam ACR BI-RADS Category 2: Benign
[2024-08-10 08:11] LABS: Parathyroid Hormone Int 33 pg/mL (15-65)
== END ==
PROVIDERS: PCP Family Medicine; Referring Provider Internal Medicine Hematology & Oncology; Visit Provider Internal Medicine Hematology & Oncology
DX: R92.333 Mammographic heterogeneous density, bilateral breasts (principal); R00.0 Tachycardia, unspecified; Z12.31 Encounter for screening mammogram for malignant neoplasm of breast; Z85.3 Personal history of malignant neoplasm of breast; I10 Essential (primary) hypertension; E83.52 Hypercalcemia; E78.2 Mixed hyperlipidemia; Z79.899 Other long term (current) drug therapy
CPT/HCPCS: 36415; 77063; 77067; 80053; 80061; 83970; 84443; 85025

== ENCOUNTER → 2025-08-09 08:55 | Outpatient (CLI) | payer MEDICARE, OTHER, SELFPAY ==
[2021-12-25 11:23] VITALS: BMI 26.9
[2025-08-09 10:00] LABS: Add Manual Diff / Slide Review NO; Hematocrit 47.3 % (36-46); Hemoglobin 16.1 g/dL (12.0-16.0); Lymphocytes Absolute Auto 1700 /uL (1100-4500); Mean Corpuscular HGB Conc 34.0 % (30-36); Mean Corpuscular Hemoglobin 30.6 PG (26-34); Mean Corpuscular Volume 90.1 fL (80-100); Platelet Count 283 X10^3/uL (150-400)
[2025-08-09 10:21] LABS: Alanine Aminotransferase 26 IU/L (<35); Albumin 5.0 g/dL (3.5-5.0); Albumin Globulin Ratio 1.7 (1.0-2.8); Alkaline Phosphatase 80 U/L (38-126); Blood Urea Nitrogen 8 mg/dL (7-17); Calcium 10.7 mg/dL (8.4-10.2); Carbon Dioxide 25 mmol/L (22-32); Chloride 101 mmol/L (98-107); Cholesterol 238 mg/dL (140-199); Estimated Glomerular Filt Rate > 60 mL/min (>60); Globulin 3.0 g/dL (1.7-4.1); Glucose 115 mg/dL (70-99); HEMOLYSIS 28 (0-50); Potassium 4.9 mmol/L (3.4-5.1); Sodium 138 mmol/L (137-145); Total Protein 8.0 g/dL (6.3-8.2); Triglycerides 148 mg/dL (35-150)
[2025-08-09 10:28] LABS: HDL Cholesterol 109 mg/dL (40-60)
[2025-08-09 10:46] LABS: TSH w/ Reflex to FT4 1.44 uIU/mL (0.47-4.68)
== END ==
PROVIDERS: PCP Family Medicine; Referring Provider Family Medicine; Visit Provider Internal Medicine Hematology & Oncology
DX: E78.2 Mixed hyperlipidemia (principal); I10 Essential (primary) hypertension
CPT/HCPCS: 36415; 80053; 80061; 84443; 85025

== ENCOUNTER → 2025-08-09 12:27 | Outpatient (CLI) | payer MEDICARE, OTHER, SELFPAY ==
[2021-12-25 11:23] VITALS: BMI 26.9
--- NOTE | 2025-08-09 12:29 | DI.MG.S_ITS ---
MM screening mammo BI: 08/09/2025. BI-RADS: 2 CLINICAL: 74-year old female for bilateral screening mammogram. No Tyrer-Cuzick risk score calculation due to the patient's personal history of breast cancer. Patient reports a history of right breast carcinoma diagnosed at age 67. Status-post right lumpectomy with radiation therapy and hormonal therapy. No first-degree family history of breast cancer. The patient had a prior right breast biopsy. PRIOR EXAMS 08/08/2024, 08/03/2023, 06/26/2022, 06/25/2021, MAMMOGRAPHY TECHNIQUE: 2D and 3D (tomosynthesis) digital mammographic views obtained, with additional images as needed for full coverage. Current study was also evaluated with a Computer Aided Detection (CAD) system. DENSITY C. The breasts are heterogeneously dense, which may obscure small masses. MAMMOGRAPHY FINDINGS Right: Surgical clips present on the right. Benign-appearing calcifications and post-surgical changes noted on the right. There are no suspicious masses, calcifications, or other findings in the breast. Left: Benign-appearing calcifications noted on the left. There are no suspicious masses, calcifications, or other findings in the breast. IMPRESSION: * No evidence of malignancy with benign findings. RECOMMENDATIONS Bilateral * Annual screening mammography. OVERALL ASSESSMENT CATEGORY BI-RADS-2: Benign. The [employer] recommends annual screening mammography beginning at age 40 for women with average risk of breast cancer. ELECTRONICALLY SIGNED: Steven Milner M.D. on 08/09/2025 at 10:14:50 PM PT Interpreting Station ID: [id number]
== END ==
PROVIDERS: PCP Family Medicine; Referring Provider Internal Medicine Hematology & Oncology; Visit Provider Family Medicine
DX: Z12.31 Encounter for screening mammogram for malignant neoplasm of breast (principal); Z85.3 Personal history of malignant neoplasm of breast; R92.333 Mammographic heterogeneous density, bilateral breasts
CPT/HCPCS: 77063; 77067